=== PATIENT | female | born 1970 | race Caucasian/White ===

== ENCOUNTER 2016-11-16 01:53 | Inpatient (IN) | payer OTHER ==
[~2016-11-16] VITALS: Ht 172.7 cm; Wt 130.2 kg
[2016-11-16] VITALS (19 sets, daily range): BP systolic 104–191; BP diastolic 65–111; PULSE 87–112; RESP 13–21; O2SAT 94–100
[~2016-11-16 01:53] MED LIST: FLAXSEED PO; HYDR25TA4 PO; IRON PO; LACT1CAP67 PO; LISI-571 PO; [UNRECOGNIZED DRUG - OTHER]; [UNRECOGNIZED DRUG - OTHER] PO
[2016-11-16] MEDS ORDERED: 0.9% Sodium Chloride 1,000 ML IV SCH ×2 (02:05→07:40)
--- NOTE | 2016-11-16 02:05 | ED.REPORT ---
HPI-Abd Pain F 40 and Over Date of Service Nov 16, 2016 ED Provider: Ciaran Melton DO Patient is a 45 year old female with a history of hypertension and colon cancer who presents to the ED complaining of right lower quadrant abdominal pain onset 1700 this evening. The patient states that she has a hernia that she is normally able to get back in when she lays down but was unable to do that tonight. Associated symptoms include vomiting and diarrhea. She reports that she was constipated before today. Patient states that her abdomen is too painful to even touch. Nursing Notes Stated Complaint: VOMITING Chief Complaint: Female Abdominal Pain Nursing Notes Reviewed: Yes Allergies: Coded Allergies: iodine (Verified Allergy, Unknown, TOPICAL-RASH, 03/04/14) Scheduled ([flaxseed/fishoil,B]) 1 CAP PO DAILY ([Womens Mvi]) 1 TAB DAILY ([Iron]) PO DAILY Hydrochlorothiazide (Hydrochlorothiazide) 25 Mg Tablet 25 MG PO DAILY Lactobacillus Combination No.4 (Probiotic) 1 Each Capsule 1 EACH PO DAILY Lisinopril (Lisinopril) 5 Mg Tablet 10 MG PO DAILY General Time Seen by MD: 02:04 Chief Complaint Abdominal pain Hx Obtained From: Patient Arrived By: Walk-in Sudden in Onset?: Yes Onset Occurred: 5 - 8 hours ago Symptom Duration: Since onset Location: : RLQ Quality: Painful Radiation: : Does not radiate Severity: Current: Moderate Associated with: Reports: Diarrhea, Vomiting Recent Healthcare: No recent hospitalization, Recent doctor visit Past Medical History Past Medical History colon cancer DVT Reports: Hypertension Past Surgical History right colectomy Reports: Smoking History Never Smoker Social History Other Social History: Good social support Ambulatory Status Independent Review of Systems Constitutional: Denies: Chills, Fever Respiratory: Denies: Non-productive cough, Shortness of breath, Wheezing GI: Reports: Abdominal pain, Constipation, Diarrhea, Nausea, Vomiting Complete sys rev & neg: except as marked. Skin: Denies Rash Physical Exam Vital Signs Vital Signs (First) Date Time Temp Pulse Resp B/P Pulse Ox O2 Delivery O2 Flow Rate FiO2 11/16/16 01:55 36.4 99 16 184/111 96 Room Air Initial VS: Reviewed General/Constitutional: Awake, Alert Appearance / Presentation: Positive: Obese moderate distress due to pain Respiratory / Chest: Atraumatic, Breath sounds NL, Breath sounds = bilat, No respiratory distress Cardiovascular: Heart rate NL, Regular rhythm, Heart sounds NL Abdomen: Atraumatic, Soft quite tender in the right lower quadrant mass in the lower right quadrant consistent with a ventral wall hernia Back: Atraumatic, Full range of motion Head / Eyes: Atraumatic, Normocephalic, PERRL, EOMI Skin: Atraumatic, Color NL, No rash diaphoretic Neurologic: Oriented X3, Speech NL, No motor deficits, No sensory deficits Upper Extremity / MS: Atraumatic, Full range of motion Psychiatric: Affect NL, Mood NL Interpretation & Diagnostics Lab Results Interpretation Test 11/16/16 02:40 Re-Eval/Medical Decision Med Decision/Clinical Course Patient's right lower quadrant is quite tender with a mass consistent with a ventral wall hernia. Her symptoms have been constant since 1700 this evening. Plan for IV resuscitation, pain medication and consider hernia reduction after adequate analgesia Mrs. Roger prefers to have a CT scan prior to attempts at reduction of the hernia. She states that her hernias never quite like this before. This is a reasonable option. I place an ultrasound-guided peripheral IV in the left proximal arm. One attempt. No complications. Under direct visualization I watched saline infused into the vein. We are going to medicate her with IV Dilaudid. Labs are been ordered. CT will be ordered. My shift is ending. Case signed out to Dr. Abdullahi You. Anticipate attempt at hernia reduction or surgical consultation. Counseled Regarding: Diagnosis, Lab results, Need for follow-up, When/why to return to ED Discharge & Departure Shift Change Sign-Out Patient Care Transferred: Yes (Dr. Abdullahi You) Discussed Complaint(s): Yes Laboratory Evaluation: Ordered, not yet done Imaging Studies: Ordered, not yet done Response to Therapy: Worsened Primary Impression: Incarcerated ventral hernia Additional Impressions: Abdominal pain Abdominal location: right lower quadrant Qualified Code: R10.31 - Right lower quadrant pain Nausea vomiting and diarrhea Discharge Condition All VS Reviewed: Yes Condition: Stable Patient Instructions: Ventral Hernia (ED) Referrals: Ronaldo Tamayo MD (PCP) Scribe Attestation Portions of this note were transcribed by Cierra Hung. I, Dr. Melton personally performed the history, physical exam and medical decision-making; I reviewed and confirmed the accuracy of the information in the transcribed note. Signed by: Omar Ornelas, 11/16/16 and [id number] copies to: Ronaldo Tamayo MD, Todd P DO Nov 16, 2016 02:05 Tracy Hung Nov 16, 2016 02:08
[2016-11-16] MEDS ORDERED: HYDROmorphone 1 mg/mL Inj IM ONE (02:30)
[2016-11-16] MEDS: HYDROmorphone 0.5 mg/0.5 mL iSecure Syringe IVPUSH PRN ×4 (02:42→11:30)
[2016-11-16] MEDS: Ondansetron 2 mg/mL 2 mL Inj IVPUSH PRN ×4 (02:42→11:23)
[2016-11-16 02:51] LABS: BASOPHILS % (AUTO) 0.3 % (0-3); EOSINOPHILS % (AUTO) 1.3 % (0-5); MONOCYTES % (AUTO) 4.5 % (4-12); Mean Corpuscular Hemoglobin 27.6 pg (27.0-35.0); Mean Corpuscular Volume 85.4 fL (81-100); NEUTROPHILS % (AUTO) 78.7 % (40-74); Platelet Count 379 bil/L (150-400)
[2016-11-16 03:22] LABS: Lipase 27 U/L (13-60)
[2016-11-16] MEDS ORDERED: Ketamine 10 mg/mL 20 mL Inj IV ONE (05:10)
[2016-11-16 05:31] LABS: APPEARANCE,URINE CLEAR (CLEAR,HAZY); COLOR,URINE STRAW (YELLOW); OCCULT BLOOD,URINE NEGATIVE (NEGATIVE); UROBILINOGEN,URINE NORMAL (NORMAL)
[2016-11-16] MEDS ORDERED: ProchlorPERazine 5 mg/mL 2 mL Inj IVPUSH ONE (05:50)
[2016-11-16] MEDS ORDERED: 0.9% Sodium Chloride 1,000 ML IV ONE (07:40)
[2016-11-16] MEDS: Sodium Chloride LOK Flush 10 mL Syringe IVFLUSH SCH ×5 (07:44→23:17)
--- NOTE | 2016-11-16 08:24 | DRSVH ---
PROCEDURE: CT ABDOMEN AND PELVIS WITH CONTRAST ([id number]) INDICATIONS: severe RLQ pain, ventral wall hernia TECHNIQUE: After the administration of intravenous contrast, 5 mm thick sections acquired from the diaphragm to the symphysis. 5 mm coronal and sagittal reformats were acquired. For radiation dose reduction, the following was used: automated exposure control, adjustment of mA and/or kV according to patient siz e. COMPARISON: None. FINDINGS: Image quality: Excellent. ABDOMEN: Lung bases: Lung bases are clear. Heart size is normal. Solid organs: Liver and spleen are normal in size and enhancement. Gallbladder is within normal hickey its. Biliary system is non dilated. Pancreas enhances normally. No adrenal nodules. Kidneys demon strate normal size and enhancement, without hydronephrosis. Peritoneum and bowel: Bowel loops demonstrate normal wall thickness and caliber. No free fluid or a ir. The right colon has been resected with the patient and and small bowel transverse colon anastomos is on series to image 45 and 46. Nodes and vessels: No retroperitoneal or mesenteric adenopathy by size criteria. Aorta and inferior vena cava are normal in size. Miscellaneous: There is a large hernia involving bowel and mesentery a right spigelian in location ba sed on series 2 image 61. The right rectus abdominis muscle appears to be atrophic. No changes to ind icate ischemia are seen. Several of the bowel loops appear slightly prominent with fluid and air flui d levels within this hernia suggesting mild partial small bowel obstruction may be present within the hernia. No free air or ascites is present. PELVIS: Genitourinary: Bladder wall thickness is normal. Uterus is grossly normal. There is a 3 cm cystic s tructure in the left ovary. Miscellaneous: No inguinal hernias or adenopathy. Bones: No suspicious bony lesions. No vertebral body compression fractures. IMPRESSION: 1. Very large right parasagittal probably spigelian type hernia containing mesentery and small bowel in a patient with previous right colectomy. Several of the bowel loops within the hernia are slightly prominent compared to others suggesting mild partial obstruction may be present within the hernia sa c. 2. There is a 3 cm cystic structure in the left ovary. Dictated by: Jacky Bailey M.D. on 11/16/2016 at 8:15 this report corresponds to the findings of t charley preliminary NSR report. Approved by: Jacky Bailey M.D. on 11/16/2016 at 8:22
[2016-11-16] MEDS ORDERED: Acetaminophen IV 1,000 MG in IV Premix 1 EACH IV PRN (08:35)
[2016-11-16] MEDS ORDERED: Ondansetron 2 mg/mL 2 mL Inj IVPUSH PRN ×3 (08:35→15:05)
[2016-11-16 09:09] LABS: BASOPHILS % (AUTO) 0.1 % (0-3); EOSINOPHILS % (AUTO) 0 % (0-5); MONOCYTES % (AUTO) 2.8 % (4-12); Mean Corpuscular Hemoglobin 27.3 pg (27.0-35.0); Mean Corpuscular Volume 85.1 fL (81-100); Platelet Count 317 bil/L (150-400)
[2016-11-16] MEDS ORDERED: FOLI1TAB50 PO (09:27)
[2016-11-16] MEDS ORDERED: FLUO20CA25 PO (09:27)
[2016-11-16] MEDS ORDERED: OMEG-140 PO (09:29)
[2016-11-16] MEDS ORDERED: FERR325C PO (09:30)
[2016-11-16] MEDS ORDERED: Rocuronium 10 mg/mL 5 mL Inj ONE (10:01)
[2016-11-16] MEDS ORDERED: Neostigmine 1 mg/mL 10 mL Inj ONE (10:01)
[2016-11-16] MEDS ORDERED: Succinylcholine Chloride 20 mg/mL 5 mL Inj ONE (10:01)
[2016-11-16] MEDS ORDERED: fentaNYL-PF 50 mCg/mL 2 mL Inj ONE (10:01)
[2016-11-16] MEDS ORDERED: Ondansetron 2 mg/mL 2 mL Inj ONE (10:01)
[2016-11-16] MEDS ORDERED: Glycopyrrolate 0.2 MG/ML 1mL Inj ONE (10:01)
[2016-11-16] MEDS ORDERED: Phenylephrine/NS 100 mCg/mL 10 mL Syringe IVPUSH ONE (10:01)
[2016-11-16] MEDS ORDERED: Propofol 10,000 mCg/mL 20 mL Inj ONE (10:01)
--- NOTE | 2016-11-16 11:43 | NUR ---
Admit from ER to 1027 pt. brought from ER to 1027 at 0930 this am. Pt. remains hypertensive; see vitals; one time dose of lisinopril 10 mg po given in ED; paged and notified of vs results; no new orders received, surgeon stated will treat pt. in OR and refer to hospitalist post surgery. Receiving prn dilaudid 0.5mg IV for pain; tolerable at this time; denies nausea at this time.
--- NOTE | 2016-11-16 12:20 | NUR ---
Taken to OR at 1220 pt. taken to OR at 1220 this am. at bedside.
--- NOTE | 2016-11-16 12:33 | PCM.HPANE ---
Patient Data Surgeon Admitting Provider:Jessica Bejarano MD Attending Provider:Jessica Bejarano MD Primary Care Physician:Ronaldo Tamayo MD Other Provider:Sharon Orona Anesthesia Reason for Visit Incarcerated Ventral Hernia, Sbo Ht/WT & BMI Height (Feet): 5 Height (Inches): 8.00 Weight (Kilograms): 130.200 Body Mass Index 43.50 Allergies Coded Allergies: iodine (Verified Allergy, Unknown, TOPICAL-RASH, 03/04/14) Past Anesthesia History Anesthesia History: Denies:: Abnormal Airway, Anesthesia Reactions, Difficult Intubation, Fam Anesthesia Reaction, Fam Malignant Hypertherm, Malignant Hyperthermia Diabetes History Hx Diabetes?: No MRSA MRSA: No Medications Home Meds Incl Beta Margie: No Reported Medications Ferrous Sulfate (Iron)325 Mg Capsule.er325 Mg PO 11/16/16 [place]-3/Dha/Epa/Fish Oil (Fish Oil [place]-3 EC 1,200 mg)360 Mg-1,200 Mg Capsule.dr1 Each PO 11/16/16 Mv,Ca,Min/Iron Fum/FA/Vit K (Multi For Her Tablet)1 Each Tablet1 Each PO DAILY 11/16/16 Fluoxetine 20 Mg Vpihgxh61 Mg PO DAILY #30 11/16/16 Lisinopril 5 Mg Agavww09 Mg PO DAILY #30 TABLET Ref 0 07/04/15 Hydrochlorothiazide 25 Mg Mkoudf15 Mg PO DAILY 30 Days Ref 0 07/04/15 Lactobacillus Combination No.4 (Probiotic)1 Each Capsule1 Each PO DAILY 03/28/14 Discontinued Reported Medications [Iron] No Conflict Check Po Daily 03/28/14 [Womens Mvi] No Conflict Check1 Tab DAILY 04/29/13 [flaxseed/fishoil,B] No Conflict Check1 Cap PO DAILY 10/28/12 History History of ENT Problems?: No HEENT History: Denies:: Abnormal Airway Difficult Intubation Dysphagia Hearing Problem Denture Type: None Teeth Condition: Within Normal Limits Hx of Heart Problems?: Yes Cardiovascular History: Positive for:: Hypertension Thrombophlebitis (RT IJ DVT R/T PICC LINE) Denies:: AICD Atrial Fibrillation Chest Pain Pacemaker Valvular Heart Disease Other History/Comments Cardiac ROS negative Hx of Respiratory Problem?: No Respiratory History: Denies:: Asthma COPD Chest Surgery Cough Dyspnea Emphysema Hemoptysis Oxygen Administration Pneumonia Pulmonary Embolism Tuberculosis Use of C-PAP Machine Use of Inhalers / NEBS Hx Neurologic Problems?: No Neurological History: Denies:: Alzheimer's Disease CVA Dementia Dizziness Headaches Multiple Sclerosis Parkinson's Disease Peripheral Neuropathy Seizures TIA Hx of GI Problems?: Yes Other GI Pertinent History: Colon cancer 2011, bursted appendix Hx of Problems?: No Female Hx: Denies:: Currently Skin History: Positive for:: History Skin Disorders? (NEARLY CLOSED ABD INCISION) Denies:: Pressure Ulcers Hx Musculoskeletal Problems?: No Musculoskeletal History: Denies:: Joint Replacement Hx of Psycho/Social Problems?: No Psycho Social History: Positive for:: Anxiety (SITUATIONAL) Denies:: Hx Depression Hx Surgeries?: Yes (rt colectomy x2, ,) Hx Any Other Health Problems?: Yes Other History: Positive for:: Cancer (CECAL NEOPLASM) Denies:: Endocrine Disease Hospitalization Thyroid Disease History Blood Transfusions: Positive for:: Accept Blood Products? Denies:: Blood Transfuse Reaction Blood Transfusions Hx Diabetes: No Hx Alcohol Use: NoHx Substance Use: No Smoking Status: Never Smoker Have You Smoked inLast 12 mo: No Stop/Bang Treated for Sleep Apnea?: No Do You Have a CPAP Machine?: No S-Snoring: Do You Snore Loudly: No T-Tired: feel tired, fatigued: No O-Obsered: Observed not breath: No P-Blood Pressure: treated: Yes B- Body Mass Index > 35 kg/m2: Yes A- Age over 50: No N- Neck Large Circumference: No G- Gender Male: No BHAVANI Total Score: 3 Risk Assessment Category Category 1A: Patient has history of documented sleep apnea, and HAS NOT received any narcotic, sedative or anesthesia administration during this stay. Category 1B: Patient has history of documented sleep apnea, and HAS received any narcotic , sedative or anesthesia administration during this stay Category 2: Patient has SUSPECTED Obstructive Sleep Apnea, and HAS received any narcotic , sedative or anesthesia administration during this stay. Category 3: Patient has SUSPECTED Obstructive Sleep Apnea and HAS NOT received narcotic, sedative or anesthesia administration during this stay. Category 4: Outpatient in Procedural Areas with known sleep apnea or who screen positive for High Risk via the STOP/BANG questionnaire. Exam Exam Vital Signs Vital Signs Date Time Temp Pulse Resp B/P Pulse Ox O2 Delivery O2 Flow Rate FiO2 11/16/16 09:47 36.6 89 20 186/99 97 Room Air 11/16/16 08:59 108 190/98 11/16/16 08:00 101 191/100 11/16/16 06:10 98 21 181/100 98 Room Air General Appearance: Alert, Oriented X3, Cooperative HEENT/AIRWAY: MP 2 Lungs: Clear to Auscultation, Normal Air Movement Heart: Exam Unremarkable, Regular Rate/Rhythm, No Murmurs/Rubs/Gallops Meds/Labs/Diagnostics Admission Meds Current Medications Sodium Chloride 10 ml 10 ml KWABENA IVFLUSH Last administered on 11/16/16 07:44; Start 11/16/16 at 08:30 Sodium Chloride (Normal Saline) 1,000 ml @ 0 mls/hr Q0M IV Last administered on 11/16/16 02:59; Start 11/16/16 at 02:05 Hydromorphone HCl (Dilaudid Inj) 1 mg ONCE ONCE IM Last administered on 02:32; Start 11/16/16 at 02:30; Stop 11/16/16 at 02:31; Status DC Ketamine HCl (Ketalar Inj) 40 mg ONCE ONCE IV Last administered on 11/16/16 05:30; Start 11/16/16 at 05:10; Stop 11/16/16 at 05:11; Status DC Prochlorperazine 10 mg 10 mg ONCE ONCE IVPUSH Last administered on 11/16/16 05:55; Start 11/16/16 at 05:50; Stop 11/16/16 at 05:51; Status DC Sodium Chloride 1,000 ml @ 0 mls/hr Q0M ONCE IV Last administered on 07:42; Start 11/16/16 at 07:40; Stop 11/16/16 at 07:41; Status DC Sodium Chloride (Normal Saline) 1,000 ml @ 100 mls/hr Q10H IV Last administered on 11/16/16 09:26; Start 11/16/16 at 07:40 Lisinopril (Zestril) 10 mg ONCE ONCE PO Last administered on 11/16/16 07:48; Start 11/16/16 at 07:40; Stop 11/16/16 at 07:41; Status DC Labs Test 11/16/16 02:40 11/16/16 05:17 11/16/16 09:05 Total Bilirubin 0.6mg/dL (0.0-1.2) Aspartate Amino Transf (AST/SGOT) 23U/L (0-50) Alanine Aminotransferase (ALT/SGPT) 18U/L (0-32) Alkaline Phosphatase 85U/L (25-150) Total Protein 8.6g/dL (6.4-8.4) Albumin 4.2g/dL (3.4-5.0) Lipase 27U/L (13-60) Human Chorionic Gonadotropin, Qual Negative (Negative) Hold Nicholas Top Tube Received (Received) Urine Color Straw (YELLOW) Urine Appearance Clear (CLEAR,HAZY) Urine pH 8.0 (5.0-8.0) Urine Specific [place] 1.037 (1.003-1.035) Urine Protein Negativemg/dL (NEG,TRACE) Urine Glucose (UA) Negativemg/dL (NEGATIVE) Urine Ketones 15mg/dL (NEGATIVE) Urine Occult Blood Negative (NEGATIVE) Urine Nitrite Negative (NEGATIVE) Urine Bilirubin Negative (NEGATIVE) Urine Urobilinogen Normalmg/dL (NORMAL) Urine Leukocyte Esterase Negative (NEGATIVE) Urine RBC 0-2/hpf (0-2) Urine WBC 6-10/hpf (0-5) Urine Epithelial Cells Moderate/hpf (NONE-MOD) Urine Crystals None seen (NONE SEEN) Urine Bacteria Few/hpf (NONE-FEW) Urine Hyaline Casts None/lpf (NONE) Urine Granular Casts None seen (NONE SEEN) Urine Waxy Casts None seen (NONE SEEN) Urine Red Blood Cell Casts None seen (NONE SEEN) Urine White Blood Cell Casts None seen (NONE SEEN) Urine Mucus None seen (None Seen) Urine Trichomonas None seen (NONE SEEN) Urine Yeast None (NONE SEEN) Urine Culture Reflexed Indicated White Blood Count 14.1th/mm3 (3.8-10.1) Red Blood Count 4.98mil/mm3 (3.90-5.20) Hemoglobin 13.6g/dL (12.0-15.6) Hematocrit 42.4% (35.0-46.0) Mean Corpuscular Volume 85.1fL (81-100) Mean Corpuscular Hemoglobin 27.3pg (27.0-35.0) Mean Corpuscular Hemoglobin Concent 32.1% (32.0-37.0) Red Cell Distribution Width 14.9% (12.3-15.4) Platelet Count 317bil/L (150-400) Neutrophils (%) (Auto) 92.0% (40-74) Lymphocytes (%) (Auto) 4.9% (14-46) Monocytes (%) (Auto) 2.8% (4-12) Eosinophils (%) (Auto) 0% (0-5) Basophils (%) (Auto) 0.1% (0-3) Sodium Level 137mEq/L (134-144) Potassium Level 4.5mEq/L (3.5-5.2) Chloride Level 101mEq/L (97-108) Carbon Dioxide Level 20mmol/L (18-29) Blood Urea Nitrogen 10mg/dL (6-24) Creatinine 0.61mg/dL (0.57-1.00) Estimat Glomerular Filtration Rate 152mL/min (>59) Glucose Level 167mg/dL (60-99) Calcium Level 8.5mg/dL (8.5-10.1) Plan Impression Patient chart reviewed, patient interviewed and anesthestic plan with risks, benefits, and alternatives discussed, and informed consent obtained. ASA Physical Status: ASA3 Severe Disease Anesthetic Plan: GA, Epidural Bene/Risks/Altern/Consents: Yes HP Complete Prior to Induction: Yes Other Epidural for post operative pain Pio Rao MD Nov 16, 2016 12:33
[2016-11-16] MEDS ORDERED: Lactated Ringer's 1,000 ML IV ONE ×4 (12:46→15:49)
--- NOTE | 2016-11-16 13:00 | HP ---
[address] [address] HISTORY AND PHYSICAL PATIENT: CARISA BROWN : 1970 MR#: [id number] ADMIT: 11/16/2016 JOB ID: [id number] DATE: 11/16/2016 CHIEF COMPLAINT/IDENTIFICATION: A 45-year-old female with symptomatic incisional hernia, possible incarceration or strangulation. HISTORY OF PRESENT ILLNESS: The patient notes that she has had this incisional hernia for quite some time, feels that she is usually able to reduce it but that it is irreducible and that she has been vomiting with focal pain over the hernia since yesterday. She came into the emergency department in the middle of the night, received some intravenous ketamine with the attempt to reduce the hernia after a CT scan has demonstrated a hernia. There had been some tentative plans to admit her for emergency surgery, by Dr. Bejarano and I am asked to see her this morning. The patient tells me that she has had this hernia for quite some time, always has felt that she could reduce it by lying down on her back. The hernia has become more symptomatic with discomfort and she sought consultation with Dr. Alvarenga who recommended that she lose weight prior to hernia repair. She has not been terribly successful at this but again, pain became worse than usual yesterday, had associated nausea and vomiting and tenderness over the right lower quadrant and she has presented to the emergency department. PAST MEDICAL HISTORY: 1. Hypertension. 2. History of right colectomy over five years ago for colon cancer with a subsequent reexploration for intestinal perforation two days postop. She did receive postoperative chemotherapy, and at this point, has no evidence of disease and more than five years out from her initial surgery. She has had a colonoscopy within the past 12 months that was negative by Dr. Zamudio. MEDICATIONS: Lisinopril. ALLERGIES: IODINE. SOCIAL HISTORY: , negative tobacco. Negative daily alcohol. Does not work outside the home. FAMILY HISTORY: Noncontributory. REVIEW OF SYSTEMS: Cardiac negative. Chest pain negative. Paroxysmal nocturnal dyspnea, does get short of breath with exertion but this is related to her weight she feels. Pulmonary: Negative COPD, negative asthma, positive for seasonal allergies, fatigability associated with her weight. Other review of systems generally negative except for joint pain and discomfort with stairs. PHYSICAL EXAMINATION: In the emergency department, pulse was 99. Blood pressure was 184/111. Temperature was normal at 36.4. After further treatment, her blood pressure went down to 186/99, her pulse was 89. Her sclerae are clear. Neck is supple. Lungs are clear. Heart sounds are distant but regular. She has central obesity with a BMI of 43.6. She has a well-healed surgical incision consistent with a right transverse incision. She is mildly tender over the right lower quadrant in the area of incarcerated small intestine. Extremities are without edema. Neurologically, she is intact though she is still a bit loopy after the ketamine. LABORATORIES: Initial comprehensive metabolic panel is normal except for a glucose of 204 and repeat blood sugar is 167 with a pending hemoglobin A1c. Initial white count was 15, down to 14 with a repeat. Initial hematocrit is 44 but after 2 L of fluid it is down to 42. IMAGING: She had abdominal CT that I have reviewed, both the films and the report, as well as comparing the film to a CT scan from approximately two years ago. This demonstrates a very large parasagittal hernia containing mesenteric small bowel with some dilated loops of bowel and edema in the small bowel mesentery. The hernia is essentially unchanged except for the changes in the small bowel mesentery from several years ago. IMPRESSION AND PLAN: A 45-year-old female with an extremely symptomatic incarcerated incisional hernia. I would be surprised if she is ever able to truly reduce this given its size and the appearance on the CT from a few years ago. However, the fact that it is swollen and tender and her white count is elevated pushes me towards operative intervention at this point. I have explained that there is a higher risk of recurrence with emergency incisional hernia repair than with elective repair. We will try to optimize her blood sugar and her blood pressure, and plan to go to the OR today for an emergency repair of an incarcerated, possibly strangulated, incisional hernia with mesh. I have explained the risks, benefits and possible complications to the patient and her , and they agree to proceed.
[2016-11-16] MEDS ORDERED: Lactated Ringer's 1,000 ML IV SCH (14:59)
[2016-11-16] MEDS ORDERED: Lactated Ringer's 500 ML IV PRN (14:59)
[2016-11-16] MEDS ORDERED: Dexamethasone 4 mg/mL Inj IVPUSH PRN (15:00)
[2016-11-16] MEDS ORDERED: MetoCLOpramide 5 mg/mL 2 mL Inj IVPUSH PRN (15:00)
[2016-11-16] MEDS ORDERED: HYDROmorphone 1 mg/mL Inj IVPUSH PRN (15:00)
[2016-11-16] MEDS ORDERED: fentaNYL-PF 50 mCg/mL 2 mL Inj IVPUSH PRN (15:00)
[2016-11-16] MEDS ORDERED: Phenylephrine 10,000 mCg/mL Inj IVPUSH PRN (15:00)
[2016-11-16] MEDS ORDERED: EPHEDrine Sulfate 50 mg/mL Inj IVPUSH PRN (15:00)
[2016-11-16] MEDS ORDERED: Atropine 1 mg/mL Inj IVPUSH PRN (15:05)
[2016-11-16] MEDS ORDERED: EPHEDrine Sulfate 50 mg/mL Inj IV PRN (15:05)
[2016-11-16] MEDS ORDERED: diphenhydrAMINE 25 mg Capsule PO PRN (16:50)
--- NOTE | 2016-11-16 17:28 | PCM.ANEP1 ---
Post Anesthesia PACU Phase 1 Assessment Vital Signs Vital Signs Date Time Temp Pulse Resp B/P Pulse Ox O2 Delivery O2 Flow Rate FiO2 11/16/16 16:55 17 100 11/16/16 16:55 101 17 170/88 100 Simple Mask 10 11/16/16 16:50 101 13 167/99 100 Simple Mask 10 11/16/16 16:45 102 16 166/94 100 Simple Mask 10 11/16/16 16:40 37.3 105 14 158/99 100 Simple Mask 10 11/16/16 09:47 36.6 89 20 186/99 97 Room Air Anesthetic Administered: GA Level of Alertness: Sleepy, easy to arouse HALL's with Equal Strength: Yes Pain: No Pain Scale Score: 0 Nausea or Vomiting: No CV Function & Hydration Stable: Yes Airway Device: Oxygen Delivery: Simple Mask Lungs: Clear to Auscultation, Normal Air Movement PACU Phase 2 Assessment Complications: No Follow up Care: N/A Patient Instructions Provided: N/A Comments Somnulent and comfortable on arrival to PACU Pio Rao MD Nov 16, 2016 17:28
[2016-11-16] MEDS ORDERED: fentaNYL 2 mCg/mL-Bupiv 0.125% 100 ML in IV Premix 1 EACH EPIDURAL SCH (17:35)
[2016-11-16] MEDS ORDERED: Nitroglycerin 2% 1 Gm Ointment TOPICAL PRN (17:50)
[2016-11-16] MEDS: Lactated Ringer's 1,000 ML IV SCH (18:13)
--- NOTE | 2016-11-16 18:55 | OP ---
[address] [address] OPERATIVE REPORT PATIENT: CARISA BROWN : 1970 MR#: [id number] ADMIT: 11/16/2016 JOB ID: [id number] DATE OF SURGERY: 11/16/2016 PREOPERATIVE DIAGNOSIS(ES): Incarcerated incisional hernia with possible strangulation. POSTOPERATIVE DIAGNOSIS(ES): Incarcerated incisional hernia. OPERATION: Open repair of incarcerated incisional hernia with mesh. Advanced degree of difficulty, modifier-22. SURGEON: Pio Mccormick MD. WET SILK HANGER: Elvia Koo RN FA. INDICATIONS: A 45-year-old woman with an acutely symptomatic and tender right abdominal incisional hernia. She presents for urgent repair. FINDINGS: 1. healthcare administrative assistant was medically necessary and medically essential for safe and timely completion of the operation including retraction, exposure, and positioning. 2. The patient had a very chronic incisional hernia with a fair amount of small bowel and colon with multiple interloop adhesions. The bowel was somewhat edematous though there was no compromised bowel. 3. Operative time was extended to 3 hours, well more than twice the standard time for this operation. The patient required repair of multiple incisional hernias with a single piece of 8 x 10 Ventralight mesh. PROCEDURE: Patient was brought to the operating room. Epidural catheter was placed. General anesthetic was administered. The abdomen was prepped and draped in sterile fashion. SCOAP protocol was followed. Surgical time-out was performed. She received perioperative 3 g of IV Ancef. blood sugar had been mildly elevated in the emergency department and was checked to be certain that it was below 150 during the case. Initial blood sugar was reported below 120. I went through her old transverse incision. We had dissected down. We encountered some hernia sac. I ended up extending the incision all the way to her old incision medially and laterally. We encountered multiple hernia sacs. I continued my dissection down. It was difficult and tedious and we simply tried to stay in an avascular plane and eventually found a hernia sac that we entered and suctioned out serous fluid. We opened up the hernia sac a little bit more. This helped us define the anatomy, but it took us a good hour and a half to take down all the adhesions external to the abdominal fascia and then to identify the fascial defects. What we found was that she had a chronic incarcerated hernia with multiple scars to the inside of the hernia sac. There were areas of tight restrictive bands on several different areas of the small bowel though it was dilated on both sides, so these were nonobstructive, but they were somewhat occlusive bands. I can certainly imagine that they were some of the cause of her pain. We took most of these bands down. There was no enterotomy. The colon was filled with stool. We eventually found that she had two large hernia cavities, both to the right of her abdominal wall and the larger one going down towards her feet, a second one going up towards her head. We mobilized tissue out of this and we eventually were able to identify the fascial edge laterally and superiorly. We now continued our dissection medially. She had multiple smaller incisional hernias as we went medially on her incision and we ended up combining all these by cutting the small fascial bridges in between. This freed up her bowel more. We were eventually able to identify the fascial edge circumferentially that extended well to and beyond the midline. We mobilized the intestine from inside so that we could clear off the fascia and preperitoneal space. I trimmed much of the hernia sac, but still maintained a fair amount of it so that we could approximate it over the intestines prior to closure with mesh. At roughly the 1-1/2 hour to 1 hour 45 minute lang we had taken down all the adhesions in the sac, freed up all the intestine and took down all significant interloop adhesions that seemed unnecessarily restrictive or for potential internal hernias. With complete relaxation we were able to return the viscera to the abdomen, and at this point, I decided that we would need to close this with a 8 x 10 inch piece of Ventralight mesh. There was enough greater omentum and hernia sac to leave between the small intestine and the bio-absorbable side of the mesh. We brought the mesh up and secured it circumferentially with interrupted 0 Prolenes, some single and some [id number] sutures. These were placed circumferentially around the mesh with leaving the mesh inside the fascia and overlapping the wound edge for approximately 1-2 cm medially on the wound but then transitioning to [id number] approximation of the mesh and the fascia of the lateral third of the wound. Care was taken to place these sutures carefully and safely and we went medial to lateral and tied as we went for two-thirds of the closure and for the final third left our sutures long and placed some interrupted and then tied them after they had all been placed. At this point, we checked our hernia repair. Sutures were intact. They were placed appropriately. We placed a few other sutures in between two areas and then proceeded to irrigate out the wound. The vast majority of the hernia sac had been excised and I took a pair of Chu-Shen drains and brought them out into the old space that had been left by the hernia sac. Both drains were lateral to the mesh. We now closed the subcutaneous tissues in two layers with running 2-0 Vicryl to both take tension off the skin closure but also to protect the mesh in case of superficial wound infection or dehiscence. We then proceeded to close the skin with yazmin. Dry dressing was applied, and the patient was transferred to recovery room after extubation. She tolerated the procedure well, though operative time was extended at 3 hours. Estimated blood loss was 25 cc. There were no complications.
[2016-11-17] VITALS (10 sets, daily range): BP systolic 75–129; BP diastolic 46–79; PULSE 89–114; RESP 16–20; O2SAT 92–97
--- NOTE | 2016-11-17 00:09 | NUR ---
PAIN; denied pain first part of shift. Turned and repositioned q 2hrs- importance explained to pt. Coughing and deep breathing with pillow for a splint. Epidural infusing at 12cc/hr and pt has a bolus button. Pt states is comfortable "until I have to move". At approx. midnight pt c/o right side sharp abd pain. Iv tylenol hung. Addendum: 11/17/16 at 0022 by MANJIT UGARTE RN Pt states 12/16 pain.
[2016-11-17] MEDS: fentaNYL-PF 50 mCg/mL 2 mL Inj IVPUSH PRN ×2 (02:04→03:40)
--- NOTE | 2016-11-17 04:01 | NUR ---
PAIN; Sublimaze x2 for breakthru pain with fair to moderate relief. Pt repositioned for comfort q2 hrs and prn. Appeared to sleep off and on in short increments. Encouraged pt to push epidural button.
[2016-11-17] MEDS: fentaNYL 2 mCg/mL-Bupiv 0.125% 100 ML in IV Premix 1 EACH EPIDURAL SCH ×4 (04:18→21:03)
[2016-11-17 06:00] LABS: BASOPHILS % (AUTO) 0.1 % (0-3); EOSINOPHILS % (AUTO) 0.1 % (0-5); MONOCYTES % (AUTO) 10.5 % (4-12); Mean Corpuscular Hemoglobin 27.7 pg (27.0-35.0); Mean Corpuscular Volume 86.8 fL (81-100); Platelet Count 370 bil/L (150-400)
[2016-11-17] MEDS: Lactated Ringer's 1,000 ML IV SCH ×2 (06:02→19:14)
[2016-11-17] MEDS: Sodium Chloride LOK Flush 10 mL Syringe IVFLUSH SCH ×4 (08:30→16:30)
[2016-11-17] MEDS: Heparin 5,000 Unit/mL Inj SUBQ SCH ×2 (09:34→17:36)
[2016-11-17] MEDS ORDERED: CeFAZolin Inj 2 GM in IV Premix 1 EACH IV ONE (12:00)
--- NOTE | 2016-11-17 14:31 | PROG NOTE ---
[address] [address] PROGRESS NOTE PATIENT: CARISA BROWN : 1970 MR#: [id number] ADMIT: 11/16/2016 JOB ID: [id number] DATE: 11/17/2016 NOTE: Postop day one open repair of incarcerated incisional hernia with mesh. She is afebrile. Stable vital signs. Pain control is adequate. Passing gas but no bowel movements. She is not particularly hungry. Her abdomen is soft, nontender. Incision is in good shape without sign of infection. Her Chu-Shen drains are putting out serosanguineous fluid at a reasonable rate. SCDs are on. Labs: White count is 14, hematocrit is 38. Chemistries are normal. Blood glucose is 146. Hemoglobin A1c is still pending. IMPRESSION AND PLAN: Doing well. She did have one episode of transient hypotension that is likely related to her epidural. However, she is having good pain control and I would hate to see us cut back on the epidural at this point, as her hypotension was transient and asymptomatic. I have encouraged her to get up and walk and we will advance her diet slowly. I want to minimize the risk of abdominal distention and vomiting which would put an unnecessary strain on her incisional hernia repair.
--- NOTE | 2016-11-17 16:02 | NUR ---
Social Work- Screening Note Data: EMR reviewed. Pt is a 46 year old female admitted 11/16/16 for incarcerated ventral hernia, SBO per H&P. Surgery is primary service on this patient. Pt is not medically stable for discharge at this time, anticipate 1-2 more days. Pt is POD 1. Pt encouraged to ambulate and advance diet. Pt's payor at [facility]. Pt's PCP is Ronaldo Tamayo MD. Per chart review, pt resides in [place] with her where she is independent at baseline. Pt anticipated to discharge home with spouse to transport via POV. No discharge needs anticipated. SW will continue to follow if discharge needs arise. Assessment: Pt who is independent at baseline. Plan: Pt anticipated to discharge home with spouse to transport via POV. No discharge needs anticipated. SW will continue to follow if discharge needs arise. NOEMI Garcia
--- NOTE | 2016-11-17 17:01 | NUR ---
Post op day #1- Patient denies incisional pain. Epidural at 12mls/hr with prn bolus dosage has been effective for pain. BP- 70/40's earlier today. Patient asymptomatic. MD notified. BP meds held. BP gradually came up. Patient able to get up and stand at bedside for a few minutes. Lying and standing BP done with no changes in reading. Tolerating clear liquids without N&V.
[2016-11-17] MEDS ORDERED: Acetaminophen IV 1,000 MG in IV Premix 1 EACH IV ONE (21:00)
[2016-11-17] MEDS ORDERED: Ondansetron 2 mg/mL 2 mL Inj IVPUSH PRN (22:05)
[2016-11-17] MEDS ORDERED: HYDROmorphone PCA 0.2 mg/mL 30 mL Inj IV PRN (22:05)
[2016-11-17] MEDS ORDERED: MetoCLOpramide 5 mg/mL 2 mL Inj IVPUSH PRN (22:05)
[2016-11-17] MEDS ORDERED: HYDROmorphone PCA 0.2 mg/mL 30 mL Inj IV ONE (22:07)
[2016-11-17] MEDS ORDERED: Alum-Mag Hydrox-Simeth 30 mL Suspension PO PRN (22:15)
[2016-11-17] MEDS: Pantoprazole 4 mg/mL 10 mL Inj IVPUSH SCH (22:32)
--- NOTE | 2016-11-17 23:30 | PROG NOTE ---
[address] [address] PROGRESS NOTE PATIENT: CARISA BROWN : 1970 MR#: [id number] ADMIT: 11/16/2016 JOB ID: [id number] DATE: EPIDURAL MANAGEMENT NOTE: The patient is postop day one from an incisional ventral hernia repair with mesh. She had an epidural placed yesterday and per the patient and her surgeon epidural was controlling her pain well last night and this morning, however, sometime around midday apparently when the patient got up to ambulate she has started experiencing discomfort, particularly in her right lower quadrant, that has persisted until this evening when I had a chance to see the patient. Prior to my visitation, the patient had a Dilaudid PUNCH PRESS OPERATOR added and this has resulted in some improvement, but also had the side effect of increased somnolence. When I saw the patient, she was conversing appropriately, however, she stated that her pain was an 8/10, particularly on the right side. Patient remains n.p.o. She is experiencing heartburn symptoms. PHYSICAL EXAMINATION: Objectively, examination of the epidural site shows that the catheter tip remains intact at 20 cm at the skin. The dressing is dry. There is no erythema or tenderness to palpation at the insertion site. She has an epidural running 0.125% bupivacaine plus 2 mcg per mL fentanyl at a rate of 12 mL an hour with a demand dose of 5 mL three times per hour. She also has a Dilaudid PUNCH PRESS OPERATOR at the standard settings. PHYSICAL EXAMINATION: Her vital signs shows that she is satting 99% with an OxyMask on and her blood pressure has systolics in the mid 90s. This is compared to yesterday when her systolic blood pressures were much higher in the 150s-160s. Testing the patient's dermatome levels to cold reveals that she has diminished sensation more so on the left side of her body than the right, and it seems more in the upper part of her incision rather than the lower. IMPRESSION AND PLAN: A 46-year-old female postop day one from an open ventral hernia repair. The epidural seemed to be functioning very well overnight and this morning, however, for reasons that I am unsure of it does not seem to be working as well now, particularly on the right side where the patient complains of most of her pain. It looks like the epidural catheter was placed approximately 7 cm and at 20 cm at the skin. I will pull the catheter back a few centimeters in order to hopefully improve the bilateral spread of the epidural medication. This was done and the catheter was dressed in sterile manner and taped at approximately 16 cm at the skin. We well switch the patient's epidural medication while she is on a PUNCH PRESS OPERATOR to a bupivacaine only infusion. I have also scheduled the patient for IV Tylenol every 6 hours as needed. We will make these changes and reassess. I do believe the epidural catheter is providing some benefit, it just appears to be one-sided. If pulling back the catheter results in better analgesia, then hopefully we can decrease the patient's PUNCH PRESS OPERATOR or make it a p.r.n. basis. If not, then we will continue adjunct pain medications in the form of Tylenol and IV narcotics.
[2016-11-17] MEDS: BUPIVACAINE MPF 0.5% EPIDURAL SCH (23:34)
[2016-11-17] MEDS: SODIUM CHLORIDE 0.9% EPIDURAL SCH (23:34)
[2016-11-18] VITALS (9 sets, daily range): BP systolic 109–144; BP diastolic 73–90; PULSE 98–106; RESP 14–22; O2SAT 92–97
[2016-11-18] MEDS: Heparin 5,000 Unit/mL Inj SUBQ SCH ×3 (00:47→17:32)
[2016-11-18] MEDS ORDERED: HYDROmorphone 0.5 mg/0.5 mL iSecure Syringe IVPUSH PRN ×2 (01:05→16:10)
[2016-11-18] MEDS: HYDROmorphone 0.5 mg/0.5 mL iSecure Syringe IVPUSH PRN ×10 (02:18→23:47)
--- NOTE | 2016-11-18 04:08 | NUR ---
Pain/ Heartburn/ MD paged/Diet At beginning of shift patient complains of severe right sided abdominal pain, and heart burn. Surgeon in multiple surgeries and unable to address needs right away. Able to contact doctor at [phone] and an order for pantoprazole and Mylanta were written. Pharmacy questions Mylanta order, so order will be verified in the am; will pass this on to day shift nurse. Pantoprazole IV was given, and upon reassessment patient states some relief. A stat EKG was also ordered, MD notified. Anesthesiologist contacted to share that epidural does not seem to be providing any relief. Surgeon notified and has ordered a RESPONDER Dilaudid ..2 with a loading bolus of .3 to be started. Surgeon states NOT to change settings of the epidural or to stop it until the anesthesiologist arrives. Once anesthesiologist arrived, he adjusted placement of epidural as well as changed medication to bupivacaine (5ml, 20 min lockout, 3 doses an hour, continuous 12ml) only. Anesthesiologist states to still provide RESPONDER as well as epidural, and that he will be back to reassess patient after next surgery. Per day shift report RN states that patient is on clear liquid diet. Upon further assessment, no diet has been ordered. Patient has been placed on NPO until diet can be clarified in the morning. Addendum: 11/18/16 at 0411 by LUI HOU RN Upon anesthesiologists reassessment, he has DCd RESPONDER and has ordered for 0.5mg dilaudid IVP [id number]. AFTER SCHOOL COORDINATOR applied, 4L o2 via oxymask worn due to patient mouth breathing. Will continue to monitor, and continue Q1 hour checks.
--- NOTE | 2016-11-18 06:25 | NUR ---
Pain/ Distention Due to increased unmanaged pain and pt complaints of abdominal distention, on called surgeon was paged. ordered for a KUB xray now. When tech came down, she stated that due to patient being in pain she would not preform xray. Offered to give pain medication, but tech had already left. Charge nurse notified of this, and has shared this with day shift discharge planner. Care continues.
[2016-11-18] MEDS: Acetaminophen IV 1,000 MG in IV Premix 1 EACH IV PRN ×3 (07:24→19:59)
[2016-11-18] MEDS: Lactated Ringer's 1,000 ML IV SCH (07:24)
[2016-11-18] MEDS: Pantoprazole 4 mg/mL 10 mL Inj IVPUSH SCH ×2 (07:57→21:04)
[2016-11-18] MEDS: Sodium Chloride LOK Flush 10 mL Syringe IVFLUSH SCH ×6 (08:30→16:30)
--- NOTE | 2016-11-18 08:53 | DRSVH ---
PROCEDURE: X-RAY KUB ([id number]) INDICATIONS: COMPLAINTS OF DISTENSION TECHNIQUE: One view of the abdomen acquired. COMPARISON: [facility], CT, CT ABD PELVIS W CON, 11/16/2016, 4:45. FINDINGS: Surgical changes and devices: Skin yazmin and surgical drains are present. Bowel: There are mildly prominent left-sided small bowel loops measuring up to 5.0 cm in diameter. Th is appears progressed since the ditching machine operating engineer image from prior CT dated 11/16/16. There is also gas in the sto mach Soft tissues: No suspicious abdominal calcifications. Visualized solid organ contours appear normal in size. Bones: No suspicious bony lesions. Bilateral hip joint degeneration and scattered discogenic change s. IMPRESSION: Increased prominence of predominantly left-sided small bowel loops since 11/16/16, which raises the po ssibility of worsening bowel obstruction, versus postoperative adynamic ileus. If the patient's sympt oms do not improve recommend continued followup with abdominal series radiographs. Postsurgical changes as above Dictated by: Niels Khan M.D. on 11/18/2016 at 8:24 Approved by: Niels Khan M.D. on 11/18/2016 at 8:52
--- NOTE | 2016-11-18 09:57 | PROG NOTE ---
[address] [address] PROGRESS NOTE PATIENT: CARISA BROWN : 1970 MR#: [id number] ADMIT: 11/16/2016 JOB ID: [id number] DATE: 11/17/2016 SUBJECTIVE: The patient is a 45-year-old female, who is status post repair of incarcerated incisional ventral hernia with mesh. She has an epidural in place for postop pain relief. The patient is receiving local only solution 0.125% bupivacaine running at 12 mL/h. She is also receiving IV Tylenol and Dilaudid IV. Some adjustments to the epidural were made yesterday by Dr. Mcfadden. The patient had a mostly unilateral block. The patient continues to have stronger block on the left than the right, but her pain is better this morning than it was the last night. She describes the pain as a 4/10, mostly along the right side of the incision when I saw her this morning. She does complain as the Dilaudid wears off, that the pain increases. The epidural site appears fine. PLAN: I discussed options with the patient and the patient's nurse, and my plan at this time is to keep the epidural running as is without any changes. Supplemental pain medicines, the Tylenol and Dilaudid, will also be needed. Any changes to those, I will leave to the surgeons. The patient had a KUB film taken this morning, the results of which are pending, which may dictate whether or not the patient could be switched to oral medications. ROHIT
--- NOTE | 2016-11-18 11:11 | PCM.PNSURG ---
Subjective Date of Service: Nov 18, 2016 Date of Service: Nov 18, 2016 Visit Information: Reason for Visit Incarcerated Ventral Hernia, Sbo Surgery/Surgery Date Post-Op Day # 2 s/p incarcerated incisional hernia Date of Admission: Nov 16, 2016 at 05:57 Hospital Day # Subjective: Seen today with family at bedside. States she feels somewhat distended although mildly improved from earlier today. No nausea or vomiting noted. Right sided abdominal pain noted though alleviated with current pain regimen. Postop General: No Shortness of Breath, No Chest Pain Gastrointestinal: No N/V, Passing Flatus (unknown) Pain Management: AIR PUMPER without Basal, Epidural, IV Push (tylenol) Objective Vital Sign- Last 8 Hours Date Time Temp Pulse Resp B/P Pulse Ox O2 Delivery O2 Flow Rate FiO2 11/18/16 08:24 36.9 103 22 109/73 94 OxyMask 5.00 11/18/16 08:13 Supplement Oxygen 11/18/16 08:04 14 11/18/16 06:20 36.3 106 18 139/90 92 OxyMask 5.00 Intake and Output- Last 8 Hour 11/18/16 Cumulative From/Thru 07:00 11/16/16 01:55 - 11/18/16 06:58 Intake Total 1095 ml 9298 ml Output Total 875 ml 3030 ml Balance 220 ml 6268 ml Intake Oral 0 ml 640 ml IV Total 1095 ml 8658 ml Output Urine Total 750 ml 2295 ml Drainage Total 125 ml 710 ml Estimated Blood Loss 25 ml # Bowel Movements 0 0 General: Alert, Oriented X3 Neck: Supple Lungs: Clear to Auscultation Heart: Regular Rate/Rhythm Abdomen: Soft, Protuberant, Other (hypoactive) SURGICAL WOUND : Wound General Appearence: Piedad, No Erythema, Wound under dressing Dressing & Drainage Status: Intact, No Purulent Drainage, No Odor Result Diagram: 11/17/1652911/17/16529 Assessment & Plan Impression Postop day #2 s/p open repair of incarcerated incisional hernia with mesh. Afebrile with nominal pain control especially on right side of abdomen. Incisions healing well. Drain output slowing [place] [address] H/H 12 and 38. chemistries normal and cbg stable at 146 Continue epidural/AIR PUMPER while npo advance diet slowly- keep npo; ngt if n/v leave drain follow clinically OOB to chair -- PT Problems: Pain Management: fentanly dilaudid dilaudid aircraft seat upholsterer VTE Prophylaxis: Sub-Q Heparin (Unfractionated) Conrado Kevin PA-C Nov 18, 2016 11:11 will advance her diet slowly. I want to minimize the risk of abdominal distention and vomiting which would put an unnecessary strain on her incisional hernia repair. Problems: Conrado Kevin PA-C Nov 18, 2016 11:11
[2016-11-18] MEDS: BUPIVACAINE MPF 0.5% EPIDURAL SCH (12:39)
[2016-11-18] MEDS: SODIUM CHLORIDE 0.9% EPIDURAL SCH (12:39)
[2016-11-18] MEDS: D5 0.45% NaCl + KCl 20 mEq/L 1,000 ML IV SCH (13:01)
--- NOTE | 2016-11-18 15:48 | NUR ---
Evaluation completed. Please go to "Notes" then click on "Assessments and Notes" (bottom left corner of screen). Then select appropriate discipline tab on top of screen.
--- NOTE | 2016-11-18 17:20 | NUR ---
Pain/AM meds P: Pt with poorly controlled pain over NOC shift despite Epidural and q2hr IV 0.5mg Dilaudid. STAT KUB ordered at 0600 and performed at 0745 to r/o obstruction or bleeding. PO medications withheld d/t continued nausea and potential obstruction; Heparin delayed waiting for results to confirm no active bleeding and 1630 dose will be given a little later to correct 8hr interval; MD aware. No NG tube ordered at this time, encouraging activity to help with bowel gas and Dilaudid dose increased to 0.5-1mg PRN. Pain has been better controlled using IV Tylenol q6hrs with Dilaudid q2hrs. Pt is agreeable to dangling at EOB TID and felt better after working with PT.
[2016-11-19] VITALS (10 sets, daily range): BP systolic 113–131; BP diastolic 69–84; PULSE 90–97; RESP 16–18; O2SAT 92–98
[2016-11-19] MEDS: Sodium Chloride LOK Flush 10 mL Syringe IVFLUSH SCH ×7 (00:30→22:50)
[2016-11-19] MEDS: BUPIVACAINE MPF 0.5% EPIDURAL SCH ×2 (01:55→17:06)
[2016-11-19] MEDS: SODIUM CHLORIDE 0.9% EPIDURAL SCH ×2 (01:55→17:06)
[2016-11-19] MEDS: D5 0.45% NaCl + KCl 20 mEq/L 1,000 ML IV SCH ×2 (02:05→15:07)
[2016-11-19] MEDS: HYDROmorphone 0.5 mg/0.5 mL iSecure Syringe IVPUSH PRN ×9 (02:05→21:32)
[2016-11-19] MEDS: Heparin 5,000 Unit/mL Inj SUBQ SCH ×3 (02:07→17:06)
--- NOTE | 2016-11-19 05:52 | NUR ---
Pain/Activity Pt dangled legs and stood at bedside this shift. Pain remains 5-7/10, managed with IV dilauded 1mg Q2h PRN, Bupivicane epidural, and IV apap given until its DC time at 0300. Pt appears anxious when there is not a pain medication available. Pt on CPOX and 4-5 L O2 with mask. Pt remains on chips and sips, no complaints of nausea this shift. GI tones are quiet and no flautus. Pt is belching and complains of gas pains in upper abdomen. NATALYA #1 drains 55 cc, NATALYA #2 drains 25 this shift. Family member in room throughout shift. Care continues
[2016-11-19 06:42] LABS: BASOPHILS % (AUTO) 0.1 % (0-3); EOSINOPHILS % (AUTO) 1.9 % (0-5); MONOCYTES % (AUTO) 9.3 % (4-12); Mean Corpuscular Hemoglobin 27.8 pg (27.0-35.0); NEUTROPHILS % (AUTO) 74.6 % (40-74); Platelet Count 349 bil/L (150-400)
[2016-11-19] MEDS: Pantoprazole 4 mg/mL 10 mL Inj IVPUSH SCH ×2 (08:11→21:26)
--- NOTE | 2016-11-19 10:19 | PCM.PNSURG ---
Subjective Date of Service: Nov 19, 2016 Date of Service: Nov 19, 2016 Visit Information: Reason for Visit Incarcerated Ventral Hernia, Sbo Surgery/Surgery Date Nov 16, 2016 s/p incarcerated incisional hernia Post-Op Day # 3 Date of Admission: Nov 16, 2016 at 05:57 Hospital Day # 4 Subjective: Venita is feeling good today. She is still having abdominal pain and epidural is in place but seems to help more on her left side and not so much her right. She is feeling heartburn but has not vomited since surgery. She is burping but is not passing flatus. She states her abdominal distension is about the same as yesterday. Current pain regimen is working well and she is dangling feet at edge of bed after she receives Dilaudid. Postop General: No Shortness of Breath, No Chest Pain Gastrointestinal: No N/V Pain Management: Epidural, IV Push Postop Activity: Other (up to edge of bed) Objective Vital Sign- Last 8 Hours Date Time Temp Pulse Resp B/P Pulse Ox O2 Delivery O2 Flow Rate FiO2 11/19/16 08:26 Supplement Oxygen 11/19/16 08:26 17 92 11/19/16 04:55 36.3 97 17 130/81 92 OxyMask 5.00 11/19/16 04:27 18 95 Intake and Output- Last 8 Hour 11/19/16 Cumulative From/Thru 07:00 11/16/16 01:55 - 11/19/16 06:13 Intake Total 0 ml 07103 ml Output Total 980 ml 4785 ml Balance -980 ml 5635 ml Intake Oral 0 ml 640 ml IV Total 9780 ml Output Urine Total 900 ml 3895 ml Drainage Total 80 ml 865 ml Estimated Blood Loss 25 ml # Bowel Movements 0 0 General: Alert, Oriented X3, Cooperative, No Acute Distress Neck: Supple Lungs: Clear to Auscultation Heart: Regular Rate/Rhythm, No Murmurs/Rubs/Gallops Abdomen: Appropriately tender, Distended (mildly) SURGICAL WOUND : Wound Location/Description abdominal horizontal laparotomy incision Wound General Appearence: [place], Intact, Well Approximated, Incision Healing, No Erythema, No Discharge Dressing & Drainage Status: Changed, Dressing Removed Wound Drainage Type: NATALYA Drain #1 (serosanguineous ), NATALYA Drain #2 ( serosanguineous ) Extremities: Distal Pulses Palpable, Warm Neuro: Grossly Neurologically Intact Catheters: Urethral 2 Way Freed Result Diagram: 11/19/16 0600 11/19/16 0600 Lab & Micro Results: WBC decreased to 12.5 today. Sodium and chloride decreased today. Assessment & Plan Impression 46 yo female postop day #2 s/p open repair of incarcerated incisional hernia with mesh. Afebrile with acceptable pain control. Incisions healing well, dressing changed today. Drain output slowing, serosanguineous. Problems: Plan 1. Advance diet to sips of clear liquid. Patient complaining of heartburn, on protonix. 2. DC Freed 3. Encourage incentive spirometer. 4. Pain control with IV Tylenol, IV Dilaudid, currently with epidural fentanyl. 5. Mildly hypochloremic and hyponatremic today, Continue IV fluids at 80 mL/hr, add clear liquids and CMP in the AM. VTE Prophylaxis: Sub-Q Heparin (Unfractionated) Resuscitation Status: CPR: Attempt Resuscitation Attending Statement: Patient was seen and examined with the resident, her pain is well controlled at this time, she is not passing flatus but also not nausea. Will give her a trial of clear liquids and I was very strict in advising her to go very slowly and stop if she developed nausea. I agree with the plan and assessment above. Her wound is healing well with e/i/d. NATALYA's are serosang. PCEA could be discontinued soon - will d/c Freed to help encourage movement as well as to decrease chance of infection. at bedside and plan is reviewed with both patient and him. Questions answered. copies to: Pio Mccormick MD; Sim Guo MD, Erika R DO Nov 19, 2016 09:21 Evelyne Baeza [facility] Nov 19, 2016 15:25
--- NOTE | 2016-11-19 14:30 | NUR ---
NUTRITION ASSESSMENT: ASSESS: 46 YO female admitted for incarcerated ventral hernia, small bowel obstruction, POD #3. Pt is not passing flatus and abd. distention remains about the same as yesterday per notes. Pt has been NPO/CL x 3 days. Surgery advanced diet to clear liquids again today. PMHx: HTN, R colectomy for colon cancer with subsequent reexploration for intestinal perforation on POD #2, s/p chemo. LABS: Reviewed. Na 133, Glu 117. MEDS: Reviewed. GI: No BM reported. CURRENT WT: 130.2 kg. Adj BW: 83.2 kg. DIET: Clear Liquids. No PO intake yet reported. EST. NEEDS: 1188-7323 kcals (25-30 kcals/kg Adj BW), 100-125 g protein (1.2-1.5 g/kg Adj BW) NUTRITION DIAGNOSIS: 1.) Inadequate oral intake related to altered GI function as evidenced by NPO/Clear liquid diet status x 3 days. NUTRITION INTERVENTION: 1.) Continue to advance diet as able per surgery recommendations. 2.) Recommend adding impact advanced recovery once diet has been advance to at least full liquids. MONITOR / EVAL: Diet advancement / tolerance, po intake, labs, nutritional status. Follow per high nutritional risk guidelines.
--- NOTE | 2016-11-19 15:58 | PROG NOTE ---
[address] [address] PROGRESS NOTE PATIENT: CARISA BROWN : 1970 MR#: [id number] ADMIT: 11/16/2016 JOB ID: [id number] DATE: 11/19/2016 EPIDURAL DAILY PROGRESS NOTE: SUBJECTIVE: The patient is feeling much better today. She states that her pain at rest is about 2/10 with exacerbation up to only 6/10. Pain is mostly down in the lower right abdomen. She is taking clear liquid without vomiting with some heartburn and some feelings of bloating. She has not passed flatus or a bowel movement. She is still receiving supplemental IV acetaminophen and hydromorphone for pain control in addition to her epidural. She has ambulated a few steps with physical therapy. OBJECTIVE: Vital signs and labs are reviewed without any notable abnormalities. The epidural insertion site has a transparent dressing intact. There is some amount of dried blood around the catheter. There is no erythema or tenderness at the insertion site. The epidural catheter is approximately 16-17 cm at the skin. Using ice, the patient has a sensory deficit from dermatomes approximate T6-T12 bilateral. There is no noticeable muscle weakness of the legs. ASSESSMENT AND PLAN: Postop day three status post incarcerated ventral hernia repair. The patient is not yet tolerating oral medications, we will leave the epidural going as is. We will continue to follow.
[2016-11-19] MEDS: Acetaminophen IV 1,000 MG in IV Premix 1 EACH IV PRN ×3 (16:40→23:24)
--- NOTE | 2016-11-19 19:30 | NUR ---
Pain/dressing change/Freed Pt pain well controlled with Epidural and IV Dilaudid and IV Tylenol. Dressing change done this am, Abdiaziz removed at 1500, has no voided yet tried twice wants to try again in a little bit, report given to evening shift RN, will monitor closely Addendum: 11/19/16 at 1932 by ALEJANDRINA LOPEZ RN Pt stood and took a couple steps 4 times this shift.
[2016-11-20] VITALS (9 sets, daily range): BP systolic 114–135; BP diastolic 67–88; PULSE 82–101; RESP 16–22; O2SAT 91–98
[2016-11-20] MEDS: Sodium Chloride LOK Flush 10 mL Syringe IVFLUSH SCH ×5 (00:30→16:30)
[2016-11-20] MEDS: Heparin 5,000 Unit/mL Inj SUBQ SCH ×3 (00:44→17:32)
[2016-11-20] MEDS: HYDROmorphone 0.5 mg/0.5 mL iSecure Syringe IVPUSH PRN ×8 (00:45→22:18)
--- NOTE | 2016-11-20 02:21 | NUR ---
Pain/Itching/Elevation of temp On initial assessment, patient stated pain 4/10 on pain scale. Patient stated that she is not pushing epidural as to reduce hesitancy with urination. Patient using bsc often to urinate. Dilaudid 0.5mg administered. Patient used a hydrocortisone liquid from home on scalp. Advised patient not to use medication as it was not approved by the pharmacy. Patient itching increased. Shower cap given to patient. After use, scalp itching subsided. Patients temp elevated to 37.1 but returned to normal post acetaminophen IV administration. Patient belching but not passing flatus. VSS. Call light within reach. Care continues.
[2016-11-20] MEDS: D5 0.45% NaCl + KCl 20 mEq/L 1,000 ML IV SCH ×3 (03:48→19:31)
[2016-11-20] MEDS: Pantoprazole 4 mg/mL 10 mL Inj IVPUSH SCH ×2 (08:26→19:36)
[2016-11-20 08:55] LABS: BASOPHILS % (AUTO) 0.2 % (0-3); EOSINOPHILS % (AUTO) 2.7 % (0-5); MONOCYTES % (AUTO) 9.7 % (4-12); Mean Corpuscular Hemoglobin 27.5 pg (27.0-35.0); Mean Corpuscular Volume 87.9 fL (81-100); NEUTROPHILS % (AUTO) 73.3 % (40-74); Platelet Count 405 bil/L (150-400)
--- NOTE | 2016-11-20 10:08 | PCM.PNSURG ---
Subjective Date of Service: Nov 20, 2016 Date of Service: Nov 20, 2016 Visit Information: Reason for Visit Incarcerated Ventral Hernia, Sbo Surgery/Surgery Date Post-Op Day # 4 s/p Open repair of incarcerated incisional hernia with mesh Date of Admission: Nov 16, 2016 at 05:57 Hospital Day # Subjective: Patient notes improved condition today. Able [place] [facility] [place]. Tolerating small amounts of clears with n/v. Denies f/c. Pain control effective as long as doses are not missed. No flatus or BM noted. Postop General: No Shortness of Breath, No Chest Pain Gastrointestinal: Tolerating Oral Feedings (clears only), No N/V Pain Management: Epidural, IV Push (dilaudid) Neurological: Weakness Postop Activity: Ambulate with Assist Objective Vital Sign- Last 8 Hours Date Time Temp Pulse Resp B/P Pulse Ox O2 Delivery O2 Flow Rate FiO2 11/20/16 08:42 36.7 82 20 114/76 95 Room Air 11/20/16 07:44 20 97 11/20/16 04:25 36.7 95 17 127/72 95 Room Air Intake and Output- Last 8 Hour 11/20/16 Cumulative From/Thru 07:00 11/16/16 01:55 - 11/20/16 06:42 Intake Total 2075 ml 73015 ml Output Total 565 ml 5960 ml Balance 1510 ml 9963 ml Intake Oral 750 ml 2190 ml IV Total 1325 ml 74871 ml Output Urine Total 500 ml 4945 ml Drainage Total 65 ml 990 ml Estimated Blood Loss 25 ml # Bowel Movements 0 0 General: Alert, Oriented X3, Cooperative, No Acute Distress Lungs: Clear to Auscultation Heart: Exam Unremarkable Abdomen: Firm, Appropriately tender, Other (hypoactive bowel sounds) SURGICAL WOUND : Wound General Appearence: [place], Intact, Well Approximated, Incision Healing, No Erythema, Wound under dressing Dressing & Drainage Status: Intact, No Purulent Drainage, No Odor Wound Drainage Type: NATALYA Drain #1 (serosanguinous 85mL), NATALYA Drain #2 ( serosanguinous 55mL) Result Diagram: 11/20/1681311/20/16813 Assessment & Plan Impression slow postoperative course s/p open repair of incarcerated incisional hernia with mesh. No bm or flatus yet, suspect prolonged postoperative ileus vs sbo as not vomiting, tolerating small amounts of clears and overall seems improved. Will get a KUB to reevaluate. - continue epidural until better PO intake - am labs - KUB - continue PT, ambulate - will consider TPN if intake does not improve Problems: VTE Prophylaxis: Sub-Q Heparin (Unfractionated) Resuscitation Status: CPR: Attempt Resuscitation Conrado Kevin PA-C Nov 20, 2016 10:08
--- NOTE | 2016-11-20 12:36 | DRSVH ---
PROCEDURE: X-RAY KUB ([id number]) INDICATIONS: evaluate for possible sbo vs ileus TECHNIQUE: One view of the abdomen acquired. COMPARISON: [facility], CR, XR KUB, 11/18/2016, 6:05. FINDINGS: Surgical changes and devices: A wire is seen overlying the midline anterior mediastinal region of the upper abdomen. Multiple surgical drains are seen within the pelvis. Skin yazmin are seen transver sely overlying the upper pelvis/lower abdomen. Bowel: Multiple prominently distended air-filled small bowel are seen within the upper abdomen and le ft abdomen measuring up to 5.7 cm in diameter. The degree of gaseous distention of these bowel loops is more prominent on the current examination compared to the exam dated 11/18/16. There is paucity o f rectal gas. However, air and stool are seen within the proximal colon. Soft tissues: No suspicious abdominal calcifications. Visualized solid organ contours appear normal in size. No unexpected radiopaque foreign bodies are evident. Bones: No suspicious bony lesions. IMPRESSION: 1. Interval increase in size of small bowel loops remain suspicious for bowel obstruction. Given pe rsistence and increase in size of the small bowel loops, postoperative ileus is felt to be less likel y, but cannot be excluded. The need for follow up CT may be determined clinically. Continued convent ional radiographic imaging followup is recommended. 2. Surgical drainage catheters are seen overlying the lower abdomen/pelvis. Dictated by: Jameson Tan M.D. on 11/20/2016 at 12:33 Approved by: Jameson Tan M.D. on 11/20/2016 at 12:35
[2016-11-20] MEDS: Acetaminophen IV 1,000 MG in IV Premix 1 EACH IV PRN (12:41)
[2016-11-20] MEDS: SODIUM CHLORIDE 0.9% EPIDURAL SCH (14:32)
[2016-11-20] MEDS: BUPIVACAINE MPF 0.5% EPIDURAL SCH (14:32)
--- NOTE | 2016-11-20 16:12 | NUR ---
Social Work- Continued D/C Planning Data: Pt is on day 4 of hospitalization POD 4 s/p open repair of incarcerated incisional hernia with mesh. Pt is not medically stable for discharge today. PT has seen pt, pt was able to ambulate 200 feet with fww. Pt anticipated to progress and discharge home with spouse and family to assist. SW will continue to follow and await additional discharge planning orders. Assessment: Pt who is independent at baseline. Plan: Pt able to ambulate 200 feet with PT with fww. Pt anticipated to progress and discharge home with spouse and family to assist. SW will continue to follow and await additional discharge planning orders. Vianey Xiong MSW
--- NOTE | 2016-11-20 16:52 | NUR ---
Epidural P: pt with urinary retention and adequate pain control with recent regimen. Discussion with anesthesiologist Dr. Adame, epidural stopped at 1200 with plan for follow up after his next case. Pain increased dramatically and spread to back and left side of abdomen where it had previously localized to her left side. I: Dr. Adame and YARIEL Patterson notified. Bolus of bupivicaine and lidocaine given through epidural by Dr. Adame and epidural restarted at continuous rate of 12mls/hr. E: BP cycled at 5 minute interval throughout bolus and stable. Pain dropped to 0/10. Pt has been able to get up OOB with minimal pain and reports being much more comfortable. This has been her longest interval without Dilaudid since her surgery.
--- NOTE | 2016-11-20 18:26 | PROG NOTE ---
[address] [address] PROGRESS NOTE PATIENT: CARISA BROWN : 1970 MR#: [id number] ADMIT: 11/16/2016 JOB ID: [id number] DATE: 11/20/2016 EPIDURAL POSTOPERATIVE PAIN NOTE: The patient is postop day number four from an incisional ventral hernia repair with mesh. The epidural was placed on 11/16/2016. Overnight the patient was complaining of inability to void, so the epidural infusion yesterday was changed from the standard epidural infusion to an epidural infusion without narcotics. The patient relates that pain control through the evening with the addition of IV Dilaudid for breakthrough pain was satisfactory. Throughout the morning today the patient was also complaining of one-sided greater coverage than the other, and based on this I temporarily held the epidural with plain bupivacaine; it was running a 12 cc an hour. During the 2 hours that the epidural was held, the patient's pain significantly increased bilaterally to a pain number of 7/10, although the patient was able to void. With discussion of the surgical team and with the patient, I decided to reinstitute the epidural infusion at 12 cc an hour with local anesthesia only and I bolused the epidural with 10 cc of 1% lidocaine. The patient's pain went from 7/10 to 0/10. She was hemodynamically stable and was happy with the pain relief related to the current epidural. PHYSICAL EXAMINATION: Today the temperature max was 37.1, blood pressure 135/88, heart rate of 82, respirations of 22, and saturations of 98%. The epidural site is clean dry and intact. It does not appear that the epidural has moved. There is zero erythema around the epidural site and the dressings are in place. ASSESSMENT: We will continue to keep the epidural infusion with plain bupivacaine running at 12 cc an hour with a 5 cc bolus every 15 minutes PCEA as patient was happy with the pain control with breakthrough pain with IV Dilaudid through the night. The patient is continuing to advance diet and, as soon as the patient is able to eat food and transitions over to p.o. narcotics, we will consider removing the epidural. If the pain coverage is inadequate overnight, the plan would be to go back onto the standard epidural infusion with bupivacaine and fentanyl at a standard rate.
--- NOTE | 2016-11-20 22:05 | NUR ---
epidural / pain control P: increased pain, rates pain "7" without effective relief. I: called dr Magdaleno anesthesia, explained above. Dr Magdaleno requested I ask the patient if she prefers the epidural to have fentanyl in it again. the patient affirmed that she wants the fentanyl in the epidural again. explained possible side effect of urinary retention. patient again affirmed above. Dr Magdaleno ordered standard solution bupivicaine 0.125% with fentanyl 2mcg (solution number 1) with rate of 15ml and hour and bolus as previously set with the bupivicaine epidural. loading dose as ordered. E: orders received. notified patient. plan to implement. and evaluate pain control Addendum: 11/21/16 at 0036 by JUAN DANIEL SIERRA RN epidural set up as above with fentanyl and bupivicaine unable to give loading dose as ordered because hermann fagan and myself could not set the pump to do this. Dr magdaleno affirmed on the phone that it could be 'difficult' to figure out the loading dose option and it was 'okay' if it was not given. cont pulse ox in place. epidural site without change. oxymask at 3liters when patient asleep. patient understands bolus button. given heating pad for back. care ongoing. Addendum: 11/21/16 at 0056 by JUAN DANIEL SIERRA RN epidural set up with jose j fagan for the double check of the medication and rate.
[2016-11-20] MEDS ORDERED: Atropine 1 mg/10 mL (Code) Syringe IVPUSH ONE (22:45)
[2016-11-20] MEDS ORDERED: EPHEDrine Sulfate 50 mg/mL Inj IVPUSH PRN (22:45)
[2016-11-20] MEDS ORDERED: Ondansetron 2 mg/mL 2 mL Inj IVPUSH PRN (22:45)
[2016-11-20] MEDS: fentaNYL 2 mCg/mL-Bupiv 0.125% 100 ML in IV Premix 1 EACH EPIDURAL SCH (23:37)
[2016-11-21] VITALS (9 sets, daily range): BP systolic 114–151; BP diastolic 75–93; PULSE 75–94; RESP 17–20; O2SAT 94–98
[2016-11-21] MEDS: Heparin 5,000 Unit/mL Inj SUBQ SCH ×3 (00:18→17:12)
[2016-11-21] MEDS: HYDROmorphone 0.5 mg/0.5 mL iSecure Syringe IVPUSH PRN ×3 (00:18→23:52)
[2016-11-21] MEDS: Sodium Chloride LOK Flush 10 mL Syringe IVFLUSH SCH ×6 (00:30→17:09)
--- NOTE | 2016-11-21 00:37 | NUR ---
menses patient is on her menses. this explains her blood tinged urine. given tampons. care ongoing
[2016-11-21] MEDS: fentaNYL 2 mCg/mL-Bupiv 0.125% 100 ML in IV Premix 1 EACH EPIDURAL SCH ×3 (04:47→20:54)
[2016-11-21] MEDS: D5 0.45% NaCl + KCl 20 mEq/L 1,000 ML IV SCH (05:16)
[2016-11-21 06:14] LABS: BASOPHILS % (AUTO) 0.3 % (0-3); EOSINOPHILS % (AUTO) 3.3 % (0-5); MONOCYTES % (AUTO) 8.9 % (4-12); Mean Corpuscular Hemoglobin 27.6 pg (27.0-35.0); NEUTROPHILS % (AUTO) 71.8 % (40-74); Platelet Count 429 bil/L (150-400)
--- NOTE | 2016-11-21 06:45 | NUR ---
pain control patient with signifigantly improved pain control with bupiviaine and fentanyl in the epidural. rate is 15ml an hour. with bolus of 5mg every 15 min bedside pulse oximetry. break through pain medication given as documented. patient arsouses to voice easily
[2016-11-21] MEDS: Pantoprazole 4 mg/mL 10 mL Inj IVPUSH SCH ×2 (08:02→20:54)
--- NOTE | 2016-11-21 08:59 | PCM.PNSURG ---
Subjective Date of Service: Nov 21, 2016 Date of Service: Nov 21, 2016 Visit Information: Reason for Visit Incarcerated Ventral Hernia, Sbo Post-Op Day # 5 s/p Open repair of incarcerated incisional hernia with mesh Date of Admission: Nov 16, 2016 at 05:57 Hospital Day # 6 Subjective: Patient states she is feeling good and notes improvement in her condition today. She is able to ambulate to [facility] with assist. Tolerating small amounts of clears with no n/v. Denies f/c. Pain control effective. Epidural infusion stopped for part of the day yesterday with return of pain. She currently has an infusion of just bupivacaine and fentanyl which seems to be working well for her. She did have a time period of just bupivacaine in her epidural yesterday which allowed for her to feel more pain. No flatus or BM noted. She does feel like things are starting to move and reiterates her history before coming in that she had been vomiting and having diarrhea and hasn't been eating so she feels like she may not have anything to make a bowel movement. Postop General: No Shortness of Breath, No Chest Pain Gastrointestinal: Tolerating Oral Feedings, No N/V Pain Management: Epidural, IV Push Postop Activity: Ambulate without Assist Objective Vital Sign- Last 8 Hours Date Time Temp Pulse Resp B/P Pulse Ox O2 Delivery O2 Flow Rate FiO2 11/21/16 05:10 36.6 94 17 130/76 94 Room Air Intake and Output- Last 8 Hour 11/21/16 Cumulative From/Thru 07:00 11/16/16 01:55 - 11/21/16 05:43 Intake Total 1872 ml 31195 ml Output Total 2035 ml 9485 ml Balance -163 ml 9829 ml Intake Oral 1000 ml 3775 ml IV Total 872 ml 44102 ml Output Urine Total 1950 ml 8355 ml Drainage Total 85 ml 1105 ml Estimated Blood Loss 25 ml # Bowel Movements 0 0 General: Alert, Oriented X3, Cooperative, No Acute Distress Neck: Supple, Full Range of Motion Lungs: Clear to Auscultation, Normal Air Movement Heart: Regular Rate/Rhythm Abdomen: Firm, Appropriately tender, Normoactive bowel tones SURGICAL WOUND : Wound General Appearence: [place], Intact, Well Approximated, Incision Healing, No Discharge, Wound under dressing Dressing & Drainage Status: Changed, Dressing Removed, No Purulent Drainage , No Odor Wound Drainage Type: NATALYA Drain #1 (30mL serosanguenous drained this morning) , NATALYA Drain #2 (55mL serosanguenous drained this morning) Extremities: Distal Pulses Palpable, Warm, Thigh&Calf Soft/Nontender Neuro: Grossly Neurologically Intact Catheters: None Result Diagram: 11/21/16 0530 11/21/16 0530 Lab & Micro Results: WBC stable at 11.7 this is a slight increase from 10.0 yesterday H&H slightly decreased but stable at 10.6/33.4 Urine culture shows mixed urogenital carlos manuel. Diagnostics: X-RAY KUB FINDINGS: Surgical changes and devices: A wire is seen overlying the midline anterior mediastinal region of the upper abdomen. Multiple surgical drains are seen within the pelvis. Skin yazmin are seen transversely overlying the upper pelvis/lower abdomen. Bowel: Multiple prominently distended air-filled small bowel are seen within the upper abdomen and left abdomen measuring up to 5.7 cm in diameter. The degree of gaseous distention of these bowel loops is more prominent on the current examination compared to the exam dated 11/18/16. There is paucity of rectal gas. However, air and stool are seen within the proximal colon. Soft tissues: No suspicious abdominal calcifications. Visualized solid organ contours appear normal in size. No unexpected radiopaque foreign bodies are evident. Bones: No suspicious bony lesions. IMPRESSION: 1. Interval increase in size of small bowel loops remain suspicious for bowel obstruction. Given persistence and increase in size of the small bowel loops, postoperative ileus is felt to be less likely, but cannot be excluded. The need for follow up CT may be determined clinically. Continued conventional radiographic imaging followup is recommended. 2. Surgical drainage catheters are seen overlying the lower abdomen/pelvis. Dictated by: Jameson Tan M.D. on 11/20/2016 at 12:33 Assessment & Plan Impression 46yo female with a slow post operative course s/p open repair of incarcerated incisional hernia with mesh. She does not seem to be passing flatus and has not had a bowel movement. KUB X-ray showed increase in dilation of bowel loops making post operative ileus less likely than obstruction. Continues to feel subjectively improved and wanting to try increasing her nutritional intake. She will benefit from some TPN until she is able to have adequate oral intake which will take some time. Problems: Plan 1. continue epidural until better PO intake 2. CBC and CMP in AM 3. Continue PT, ambulate 4. Will add swimming pool plasterer helper recommended impact advanced recovery which will be added on today. 5. PICC line and TPN ordered to start when nutrition feels it is appropriate to start as patient is malnourished with an albumin of 3.1 and in need of optimal recovery conditions. Pain Management: Fentanyl and Bupivacaine PCEA PO ibuprofen, tylenol, and oxycodone IV Dilaudid VTE Prophylaxis: Sub-Q Heparin (Unfractionated) Resuscitation Status: CPR: Attempt Resuscitation Attending Statement: I agree with Dr. Arroyo's assessment and plan. copies to: Pio Mccormick MD; Sim Guo MD, Erika R DO Nov 21, 2016 08:59 Sim Guo MD Nov 24, 2016 20:45
[2016-11-21] MEDS ORDERED: Sodium Chloride LOK Flush 10 mL Syringe IVFLUSH PRN ×2 (11:00)
--- NOTE | 2016-11-21 11:00 | NUR ---
dizziness pt c/o feeling dizzy and whoozy, like she was going to faint, even while sitting. VSS, BP 114/78, BS 117, Epidural had been increases to 15cc/hr with solution Fentanyl 2mcg/Bupiv 0.125%, so stopped Epidural pump and notified Dr Montoya(Anesthesia). He gave order to drecrease rate to 5cc/hr, same solution
--- NOTE | 2016-11-21 11:31 | NUR ---
NUTRITION FOLLOW UP: ASSESS: 46 YO female admitted for incarcerated ventral hernia, , POD #5. Pt is not passing flatus and no BM, suspicious for post-op bowel obstruction per surgeon notes, pt may need CT. Diet advanced today to Full Liquid per resident/dietitian as pt feeling that her Bowels are moving and that lack of BM likely r/t little nutrition prior to admit/currently. TPN ordered/on hold until tomorrow/day if po intake does not improve and pt w/o bowel obstruction. Discussed with pharmacy/resident Estephania Arroyo. PMHx: HTN, R colectomy for colon cancer with subsequent reexploration for intestinal perforation on POD #2, s/p chemo. LABS: Reviewed. Alb 3.1, Glu 130, Na 135 MEDS: Reviewed. GI: No BM reported. CURRENT WT: 130.2 kg. Adj BW: 83.2 kg. DIET:Full Liquids; prev. Clear Liquids. 25-50% x 5days EST. NEEDS: 6513-7774 kcals (25-30 kcals/kg Adj BW), 100-125 g protein (1.2-1.5 g/kg Adj BW) NUTRITION DIAGNOSIS: 1.) Inadequate oral intake related to altered GI function as evidenced by NPO/Clear liquid diet status x 5 days--MILDLY IMPROVING. Diet advanced to full liquid today. PO 25-50% on clear liquids. NUTRITION INTERVENTION: 1.) Continue to advance diet as able, Impact advanced recovery added to trays. 2.) If pt indeed has SBO/po intake poor on full liquids (<50%), TPN recommendations as follows: 100g Dextrose, 50g AA, 25g lipids providing 790kcal, 0.5g/kg/min dextrose, 25% protein,32% fat, 43% CHO meeting 37% kcal, 50% pro needs. Continue to advance TPN to fully meet pt needs with TPN + diet. MONITOR / EVAL: Diet advancement / tolerance, po intake, GI status, potential for TPN,labs. Follow per high nutritional risk guidelines.
--- NOTE | 2016-11-21 11:33 | NUR ---
Social Work- Continued D/C Planning Data: EMR reviewed. 46 YO female admitted for incarcerated ventral hernia, small bowel obstruction, POD #3. Pt is not passing flatus and abd. distention remains about the same as yesterday per notes. Pt has been NPO/CL x 3 days. Surgery advanced diet to clear liquids again, which pt is tolerating. Pt may require TPN to maintain adequate nutrition. Pt continues to have an epidural. SW met with at bedside regarding discharge plan. Pt resides in a single story home and is confident that she will have enough family assistance and will progress to ambulation without a fww prior to discharge. Pt states she may even have a walker at home but that it would be difficult to use at home. Pt reports her pain is more controlled and she is ambulating more in her room. PT has seen pt and she was able to ambulate 200 feet with fww. PT is recommending HHPT, but SW does not believe that pt will need this if she continues to progress. SW will continue to follow and await any HH orders from the medical team. Pt to discharge home with family to transport via POV, no anticipated discharge needs identified. SW will continue to follow. Assessment: Pt who is independent at baseline, and will return with family assistance at discharge Plan: Pt continues to progress. SW will continue to follow and await any HH orders from the medical team. Pt to discharge home with family to transport via POV, no anticipated discharge needs identified. SW will continue to follow. Vianey Xiong MSW
--- NOTE | 2016-11-21 15:00 | NUR ---
PICC line placed/flatus pt passed flatus, denies nausea, has had no nausea all shift, tried some pudding and tolerated, pain is now controlled with epidural but she no longer feels dizzy
--- NOTE | 2016-11-21 17:02 | DRSVH ---
PROCEDURE: X-RAY PICC LINE PLACEMENT BY NURSE ([id number]) INDICATIONS: PICC placement for TPN COMPARISON: [facility], , PICC LINE PLACE BY NURSE (OLLIE), 06/04/2011, 20:20. FINDINGS: PICC was placed by the intravenous therapy team from the right side. Fluoroscopic spot fi lm demonstrates tip projected over the lower SVC. IMPRESSION: Tip of PICC projected over the lower SVC . Dictated by: Mack DORADO Interpreted: Gaby Blackburn MD on 11/21/2016 at 15:36 Approved by: Gaby Blackburn M.D. on 11/21/2016 at 17:00
--- NOTE | 2016-11-21 20:39 | PROG NOTE ---
[address] [address] PROGRESS NOTE PATIENT: CARISA BROWN : 1970 MR#: [id number] ADMIT: 11/16/2016 JOB ID: [id number] DATE: 11/21/2016 SUBJECTIVE: The patient is postoperative day four from her incisional ventral hernia repair with mesh performed on November 16, 2016. Earlier today, the patient was on 12 cc/hour of plain bupivacaine epidurally and was feeling flushed, and the decision was made to temporarily stop the infusion. Fortunately, I was called early within 10 minutes after this and reinstituted the infusion at 5 mL per hour of 0.125% bupivacaine and epidural fentanyl. The patient has remained comfortable during the day and is very happy with her current pain relief. She denies any significant itching, motor weakness, or other symptoms and generally feels pretty good. PHYSICAL EXAM: Vital signs are all stable. An examination of the epidural site shows it to be clean, dry and intact without evidence of redness, tenderness, swelling, leakage or infection. ASSESSMENT: Continued excellent epidural analgesia with 5 mL an hour of the epidural bupivacaine/fentanyl infusion with breakthrough pain managed by IV Dilaudid. The patient says she is starting to pass gas, and I told her we would keep it going over night and reassess for discontinuation tomorrow.
[2016-11-22] MEDS: Sodium Chloride LOK Flush 10 mL Syringe IVFLUSH SCH ×6 (00:30→17:03)
[2016-11-22] MEDS: Heparin 5,000 Unit/mL Inj SUBQ SCH ×3 (02:22→17:03)
--- NOTE | 2016-11-22 02:48 | NUR ---
Pain/ stool Patient passed stool x2, able to ambulate to bathroom with minimal assistance. Pain managed with continuos epidural, however breakthrough pain had occurred. Given PRN pain med, now comfortable and able to rest.
[2016-11-22] MEDS: D5 0.45% NaCl + KCl 20 mEq/L 1,000 ML IV SCH (03:17)
[2016-11-22] MEDS: HYDROmorphone 0.5 mg/0.5 mL iSecure Syringe IVPUSH PRN ×5 (03:19→17:54)
[2016-11-22 03:50] LABS: BASOPHILS % (AUTO) 0.3 % (0-3); EOSINOPHILS % (AUTO) 3.1 % (0-5); MONOCYTES % (AUTO) 8.8 % (4-12); Mean Corpuscular Hemoglobin 27.4 pg (27.0-35.0); Mean Corpuscular Volume 86.7 fL (81-100); NEUTROPHILS % (AUTO) 66.3 % (40-74); Platelet Count 396 bil/L (150-400)
[2016-11-22] MEDS: fentaNYL 2 mCg/mL-Bupiv 0.125% 100 ML in IV Premix 1 EACH EPIDURAL SCH (04:19)
[2016-11-22 05:22] VITALS: BP 147/88; PULSE 91; RESP 18; O2SAT 92
[2016-11-22 08:00] VITALS: RESP 16; O2SAT 98
[2016-11-22] MEDS ORDERED: TPN Per Pharmacist XX SCH (08:30)
[2016-11-22] MEDS: Pantoprazole 4 mg/mL 10 mL Inj IVPUSH SCH ×2 (08:49→21:12)
--- NOTE | 2016-11-22 09:13 | PROG NOTE ---
[address] [address] PROGRESS NOTE PATIENT: CARISA BROWN : 1970 MR#: [id number] ADMIT: 11/16/2016 JOB ID: [id number] DATE: 11/22/2016 CHIEF COMPLAINT: The patient is a 45-year-old female, postop day six from incisional ventral hernia repair with mesh who had a thoracic epidural in place. Overnight she had some pain that was treated with IV Dilaudid. She says her pain control is the same today as it was yesterday. She is currently eating. She is ambulating. She denies any fevers, chills, pain in the area of the epidural, leg weakness, itching, nausea. She is having bowel movements and tolerating orals quite well. I discussed the case with Jhonatan Cervantes, surgical PA, who agrees that it would be appropriate to remove the epidural today. This was discussed with the patient who agreed with the plan. This was also discussed with nurse who understands the plan. ASSESSMENT AND PLAN: The patient is a 45-year-old female who is postop day six from incisional ventral hernia repair with mesh who has a thoracic epidural in place. Pain is adequately controlled. PLAN: Will be to remove epidural today by the nurse. We will sign off.
--- NOTE | 2016-11-22 11:17 | PCM.PNSURG ---
Subjective Date of Service: Nov 22, 2016 Date of Service: Nov 22, 2016 Visit Information: Reason for Visit Incarcerated Ventral Hernia, Sbo Surgery/Surgery Date Post-Op Day # 6 s/p Open repair of incarcerated incisional hernia with mesh Date of Admission: Nov 16, 2016 at 05:57 Hospital Day # Subjective: Seen today at bedside. Patient reports improved pain control. Patient reports BM and flatus. Denies nausea and vomiting. Tolerating oral feedings. Abdominal pain continues but is being managed with current PRN pain regimen. Patient menstruating with some associated discomfort. Denies f/c. Postop General: No Shortness of Breath, No Chest Pain Gastrointestinal: Tolerating Oral Feedings, No N/V, Passing Flatus, Passing Stool Pain Management: Epidural (dc'd today), Good Pain Control Objective Vital Sign- Last 8 Hours Date Time Temp Pulse Resp B/P Pulse Ox O2 Delivery O2 Flow Rate FiO2 11/22/16 05:22 36.8 91 18 147/88 92 Room Air Intake and Output- Last 8 Hour 11/22/16 Cumulative From/Thru 07:00 11/16/16 01:55 - 11/22/16 05:22 Intake Total 1429 ml 23595 ml Output Total 1760 ml 93644 ml Balance -331 ml 9588 ml Intake Oral 520 ml 5375 ml IV Total 909 ml 86500 ml Output Urine Total 1750 ml 54064 ml Drainage Total 10 ml 1155 ml Estimated Blood Loss 25 ml # Bowel Movements 0 0 General: Alert, Cooperative, No Acute Distress Lungs: Clear to Auscultation Heart: Regular Rate/Rhythm Abdomen: Soft, Appropriately tender, Non-distended, Protuberant, Normoactive bowel tones SURGICAL WOUND : Wound Location/Description transverse abdominal incision Wound General Appearence: Yazmin (erythema jus right of midline along yazmin), Intact, Well Approximated, Incision Healing, No Discharge, Erythema ( along yazmin just right of midline) Dressing & Drainage Status: Intact, Dressing Removed, No Purulent Drainage, No Odor Wound Drainage Type: NATALYA Drain #1 (minimal output serosanguinous), NATALYA Drain # 2 (minimal serousanguinous) Result Diagram: 11/22/16 0335 11/22/16334 Assessment & Plan Impression slow postoperative course s/p incarcerated ventral hernia repair with mesh Problems: Plan - d/c tpn - advance diet-->soft - agree with dc epidural - cap iv - watch wound for expanding erythema; likely inflammation only -NATALYA 2 dc'd VTE Prophylaxis: Sub-Q Heparin (Unfractionated) Resuscitation Status: CPR: Attempt Resuscitation Conrado Kevin PA-C Nov 22, 2016 11:17
[2016-11-22 11:39] VITALS: BP 138/86; PULSE 77; RESP 18; O2SAT 96
--- NOTE | 2016-11-22 13:43 | NUR ---
NUTRITION FOLLOW UP: ASSESS: 46 YO female admitted for incarcerated ventral hernia, , POD #6, post-op suspicious for SBO, TPN was considered, however pt now with +BM x 2 today, tolerating diet with diet advancement per MD and discontinuation of TPN. PMHx: HTN, R colectomy for colon cancer with subsequent reexploration for intestinal perforation on POD #2, s/p chemo. LABS: Reviewed. Glu 122, Alb 3.0, PAB 13 MEDS: Reviewed. GI: BM x 2 11/22 CURRENT WT: 130.2 kg. Adj BW: 83.2 kg. DIET: Soft. PO 25-50%. Impact all trays EST. NEEDS: 4415-3346 kcals (25-30 kcals/kg Adj BW), 100-125 g protein (1.2-1.5 g/kg Adj BW) NUTRITION DIAGNOSIS: 1.) Inadequate oral intake related to altered GI function as evidenced by NPO/Clear liquid diet status x 5 days--IMPROVING. Diet now advanced to soft. NUTRITION INTERVENTION: 1.) Continue to include supplements on all meal trays. Will include variety of supplements to ensure adequate po intake. MONITOR / EVAL:Diet tolerance, GI status, labs. F/U per moderate risk.
[2016-11-22 16:46] VITALS: BP 148/86; PULSE 87; RESP 18; O2SAT 96
--- NOTE | 2016-11-22 18:26 | NUR ---
Pain management Pt. stated this morning that she didn't think the epidural was completely effective. Spoke with MD and anesthesiologist and pt. would like to have it taken out. Epidural discontinued at 1015 with tip intact. Started pain management regimen with IV dilaudid 0.5 mg Q2 hour, and PRN oxycodone Q4. PO motrin and tylenol administered twice this shift as well. Pts pain has consistently been between a 6 and 8, and we will try some IV fentanyl for breakthrough pain to see if that helps. Will continue to monitor. Pts. says ice and position changes also helps. Currently has an ice pack on her abdomen and is watching TV.
[2016-11-22] MEDS: fentaNYL-PF 50 mCg/mL 2 mL Inj IVPUSH PRN (19:06)
[2016-11-22 20:14] VITALS: BP 162/93; PULSE 82; RESP 17; O2SAT 97
[2016-11-23] MEDS: Sodium Chloride LOK Flush 10 mL Syringe IVFLUSH SCH ×6 (01:05→16:33)
[2016-11-23] MEDS: fentaNYL-PF 50 mCg/mL 2 mL Inj IVPUSH PRN (01:06)
[2016-11-23] MEDS: Heparin 5,000 Unit/mL Inj SUBQ SCH ×4 (01:06→23:39)
[2016-11-23 05:04] VITALS: BP 161/94; PULSE 79; RESP 17; O2SAT 96
--- NOTE | 2016-11-23 07:43 | NUR ---
Pain Pt c/o abd pain 6/10 and back pain /10. pt given Fentanyl 25mcg x2, Oxycodone 5mg x2, Motrin 200mg x1, APAP 650mg x1, ice packs for abd and heating pad for back pain. Pt stated relief from medication and would ask during administration of a pain med, "Do you know when I can get another pain medication?" Binder in place on abd and incision are GRETA. Pt independent in room with a steady gait. Care ongoing.
[2016-11-23] MEDS: Pantoprazole 4 mg/mL 10 mL Inj IVPUSH SCH ×2 (09:15→20:17)
[2016-11-23] MEDS ORDERED: Polyethylene Glycol (PEG) 17 Gm Powder PO PRN (09:30)
--- NOTE | 2016-11-23 09:34 | PCM.PNSURG ---
Subjective Visit Information: Reason for Visit Incarcerated Ventral Hernia, Sbo Surgery/Surgery Date Post-Op Day # Date of Admission: Nov 16, 2016 at 05:57 Hospital Day # Subjective: so far tolerating a soft diet, had started having BM and passed flatus 2 days ago, but overnight felt constipated, no n/v, using abd binder Objective Objective Awake in chair Able to move into bed Abd: obese, transverse incision with yazmin, no expanding erythema, NATALYA in place --> serosang Vital Sign- Last 8 Hours Date Time Temp Pulse Resp B/P Pulse Ox O2 Delivery O2 Flow Rate FiO2 11/23/16 05:04 36.4 79 17 161/94 96 Room Air Intake and Output- Last 8 Hour 11/23/16 Cumulative From/Thru 07:00 11/16/16 01:55 - 11/23/16 05:04 Intake Total 1674 ml 53977 ml Output Total 755 ml 84322 ml Balance 919 ml 86727 ml Intake Oral 1674 ml 8045 ml IV Total 00716 ml Output Urine Total 750 ml 57041 ml Drainage Total 5 ml 1180 ml Estimated Blood Loss 25 ml # Bowel Movements 0 Result Diagram: 11/22/16 0335 11/22/16 0335 Assessment & Plan Impression POD #7 s/p open ventral hernia repair with mesh Morbid obesity Problems: Plan Will order laxatives and stool softener Wear abd binder Ambulate Pain control via po meds Possible d/c drain tomorrow VTE Prophylaxis: Sub-Q Heparin (Unfractionated) Resuscitation Status: CPR: Attempt Resuscitation Sim Guo MD Nov 23, 2016 09:34
--- NOTE | 2016-11-23 11:55 | NUR ---
Patient has been discharged to [facility] for ambulation at this time.
--- NOTE | 2016-11-23 14:26 | NUR ---
Pain / Activity / GI Pt has not required and IV pain medication so far this shift. She reports her pain is usually 5/10, and is getting relief from 5 mg oxycodone and 200 mg Motrin. Encouraged pt to increase her mobility and ambulation today in order to relieve gas pains. Pt was up with physical therapy and also walked in the hallway with her spouse this a.m. Pt reported this helped her pass flatus. Pt also reported having two small, formed stools today. States she feels bloated and constipated. Requested stool softener and laxative from surgeon and administered these medications as ordered. Care continues.
[2016-11-23 15:20] VITALS: BP 151/89; PULSE 102; RESP 18; O2SAT 95
[2016-11-23 20:28] VITALS: BP 124/78; PULSE 94; RESP 18; O2SAT 95
[2016-11-24] MEDS: Sodium Chloride LOK Flush 10 mL Syringe IVFLUSH SCH ×4 (00:30→08:34)
[2016-11-24 05:49] VITALS: BP 143/89; PULSE 90; RESP 16; O2SAT 94
--- NOTE | 2016-11-24 06:38 | NUR ---
Gas Pains Pain managed with APAP or 5 my Oxy, and once ibuprofen 200 mg. Pain remains 4 or less. Patient ambulates in room with no diffuculty, remains at bedside this shift. No SOB, no chest pain, no new GI symptoms. Care continues
--- NOTE | 2016-11-24 08:20 | PCM.PNSURG ---
Subjective Visit Information: Reason for Visit Incarcerated Ventral Hernia, Sbo Surgery/Surgery Date Post-Op Day # Date of Admission: Nov 16, 2016 at 05:57 Hospital Day # Subjective: had several BM's yesterday with stool softener and miralax, no n/v, tolerating reg diet, pain control via po oxycodone and ibuprofen and tylenol Objective Objective Awake in room Able to move into bed Abd: obese, incision clean with yazmin, NATALYA --> small amount serosang output ( removed) Vital Sign- Last 8 Hours Date Time Temp Pulse Resp B/P Pulse Ox O2 Delivery O2 Flow Rate FiO2 11/24/16 05:49 36.7 90 16 143/89 94 Room Air Intake and Output- Last 8 Hour 11/24/16 Cumulative From/Thru 07:00 11/16/16 01:55 - 11/24/16 05:49 Intake Total 400 ml 29315 ml Output Total 10 ml 87707 ml Balance 390 ml 86998 ml Intake Oral 400 ml 9689 ml IV Total 45930 ml Output Urine Total 54331 ml Drainage Total 10 ml 1200 ml Estimated Blood Loss 25 ml # Voids 3 5 # Bowel Movements 2 5 Result Diagram: 11/22/16 0335 11/22/16 0335 Assessment & Plan Impression s/p open ventral hernia repair with mesh Problems: Plan Possible d/c home later today Rx: oxycodone Continue to wear abd binder OK to shower OK to take home meds VTE Prophylaxis: Sub-Q Heparin (Unfractionated) Resuscitation Status: CPR: Attempt Resuscitation Sim Guo MD Nov 24, 2016 08:20
[2016-11-24] MEDS: Pantoprazole 4 mg/mL 10 mL Inj IVPUSH SCH (08:32)
[2016-11-24] MEDS: Heparin 5,000 Unit/mL Inj SUBQ SCH (08:33)
--- NOTE | 2016-11-24 11:24 | PCM.DISURG ---
Surgical Discharge Instruction Date of Service Nov 24, 2016 Dates of Hospitalization Date of Hospital Admission Nov 16, 2016 at 05:57 Providers Admitting Physician: Pio Mccormick MD Primary Care Physician: Ronaldo Tamayo MD Attending Physician: Pio Mccormick MD Discharge Diagnosis Discharge Diagnosis Open ventral hernia repair with mesh Diet Discharge Diet: No restrictions Activity Discharge Activity-General: Balance rest and activity, Activity as pain allows , No lifting >15 pounds for 2 weeks, No driving while taking narcotic Dressing and Incisional Care Dressing Care: Keep dressing clean, dry & intact Hygiene: May shower Additional Instructions Discharge Instructions Rx: oxycodone (#20), colace F/U with Surgery PA in 1-2 weeks for staple removal and wound check Continue to wear abd binder OK to take home meds Follow Up Plan Follow-up Provider (F9): Evelyne Baeza PAC Follow-up appointment: Weeks (1-2) Call your provider for: Fever, Increasing abdominal pain, Vomiting, Increasing wound pain, Discharge @ incision, pus discharge Sim Guo MD Nov 24, 2016 11:24
--- NOTE | 2016-11-24 13:25 | NUR ---
Social Work: Discharge D: EMR reviewed. Pt is on day 8 of hospitalization. Per MD, HH is not medically necessary and pt is not homebound. Pt to discharge home with family to transport via POV, no anticipated discharge needs identified. SW will continue to follow. A: Pt who is independent at baseline, and will return with family assistance at discharge P: Pt to discharge home with family to transport via POV, no anticipated discharge needs identified. SW will continue to follow. NOEMI Abbasi
--- NOTE | 2016-11-24 14:32 | NUR ---
Discharge Pt discharged to home with spouse via private vehicle at 1350 hrs. PICC line was removed by IV therapy prior to discharge. VSS. Pain controlled by 5 mg PO oxycodone and Tylenol. All personal possessions sent with pt. Educated pt on use of new medications: oxycodone, Miralax and Colace. Stressed importance of avoiding constipation. Instructed pt on warning signs of infection (chills, fever, purulent discharge from wound) and to watch for increased pain. Gave follow up instructions to have yazmin removed; advised pt to call for an appointment for follow up in approximately 1 week. Pt expressed understanding.
--- NOTE | 2016-11-25 15:25 | PCM.DC.SUR ---
Discharge Summary Date of Service: Nov 25, 2016 Date of Hospital Admission: Nov 16, 2016 at 05:57 Date of Operation(s): Nov 16, 2016 Date of Discharge: Nov 24, 2016 Diagnosis at Time of Discharge Incarcerated incisional hernia. Problems: (1) Incarcerated ventral hernia Status: Acute ICD Code: K46.0 (2) Morbid obesity Status: Acute ICD Code: E66.01 Operation Open repair of incarcerated incisional hernia with mesh Brief History and Physical: The patient notes that she has had this incisional hernia for quite some time, feels that she is usually able to reduce it but that it is irreducible and that she has been vomiting with focal pain over the hernia since yesterday. She came into the emergency department in the middle of the night, received some intravenous ketamine with the attempt to reduce the hernia after a CT scan has demonstrated a hernia. The patient reportedly has had this hernia for quite some time, always has felt that she could reduce it by lying down on her back. The hernia has become more symptomatic with discomfort and she sought consultation with a general surgeon, Dr. Alvarenga who recommended that she lose weight prior to hernia repair. She has not been terribly successful at this but again, pain became worse than usual yesterday, had associated nausea and vomiting and tenderness over the right lower quadrant and she has presented to the emergency department. PHYSICAL EXAMINATION: In the emergency department, pulse was 99. Blood pressure was 184/111. Temperature was normal at 36.4. After further treatment, her blood pressure went down to 186/99, her pulse was 89. Her sclerae are clear. Neck is supple. Lungs are clear. Heart sounds are distant but regular. She has central obesity with a BMI of 43.6. She has a well-healed surgical incision consistent with a right transverse incision. She is mildly tender over the right lower quadrant in the area of incarcerated small intestine. Extremities are without edema. Neurologically, she is intact though she is still a bit loopy after the ketamine. LABORATORIES: Initial comprehensive metabolic panel is normal except for a glucose of 204 and repeat blood sugar is 167 with a pending hemoglobin A1c. Initial white count was 15, down to 14 with a repeat. Initial hematocrit is 44 but after 2 L of fluid it is down to 42. IMAGING: She had abdominal CT that I have reviewed, both the films and the report, as well as comparing the film to a CT scan from approximately two years ago. This demonstrates a very large parasagittal hernia containing mesenteric small bowel with some dilated loops of bowel and edema in the small bowel mesentery. The hernia is essentially unchanged except for the changes in the small bowel mesentery from several years ago. Consultants: Anesthesiology Hospital Course: After the patient was initially evaluated in the ED, the patient was then taken to the operating room for a incisional hernia repair with mesh. Please refer to the operative notes for details of the procedure. The patient tolerated the procedure well and was then transferred to her hospital room where she remained for the balance of her hospital stay. The postoperative phase of her hospital stay was taken up by a slow return of bowel function requiring a plan to start TPN and then cancelling it, serial KUB's to follow dilated loops of small bowels to rule out obstruction, (which never occured), management and eventual removal of 2 mariza garcia drains placed intraoperatively and then serially removed and adequate pain control requiring the combined use of an epidural, a OIL BURNER INSTALLER and an abdominal binder. The OIL BURNER INSTALLER and then the epidural were eventually discontinued once the patient had a bowel movement on postoperative day number 6. During her hospital stay, she continued with physical therapy, and her diet was slowly advanced. Both abdominal drains were serially removed. On postoperative day number 8 she was found to be tolerating oral pain medication, tolerating a diet and ambulating sufficiently per PT. She was then discharged to home in good condition. Pathology: None Disposition: Home in good condition Follow-up Plan: 1. Discharge Diet: No restrictions 2. Discharge Activity-General: Balance rest and activity, Activity as pain allows, No lifting >15 pounds for 2 weeks, No driving while taking narcotic 3. Dressing Care: Keep dressing clean, dry & intact 4. Hygiene: May shower 5. Discharge Instructions Rx: oxycodone (#20), colace F/U with Surgery PA in 1-2 weeks for staple removal and wound check Continue to wear abd binder OK to take home meds 6. Follow-up Provider: Evelyne Baeza 7. Follow-up appointment: Weeks (1-2) 8. Call your provider for: Fever, Increasing abdominal pain, Vomiting, Increasing wound pain, Discharge @ incision, pus discharge Ferrous Sulfate (Iron) 325 Mg Capsule.er 325 MG PO (Reported) Fluoxetine (Fluoxetine) 20 Mg Capsule 20 MG PO DAILY (Reported) Hydrochlorothiazide (Hydrochlorothiazide) 25 Mg Tablet 25 MG PO DAILY (Reported ) Lactobacillus Combination No.4 (Probiotic) 1 Each Capsule 1 EACH PO DAILY ( Reported) Lisinopril (Lisinopril) 5 Mg Tablet 10 MG PO DAILY (Reported) Mv,Ca,Min/Iron Fum/FA/Vit K (Multi For Her Tablet) 1 Each Tablet 1 EACH PO DAILY (Reported) Porcupine-3/Dha/Epa/Fish Oil (Fish Oil Porcupine-3 EC 1,200 mg) 360 Mg-1,200 Mg Capsule.dr 1 EACH PO (Reported) copies to: Ronaldo Tamayo MD, Samuel L PA-C Nov 25, 2016 15:25
== END 2016-11-24 13:49 | disposition home or self-care (01) | DRG 354 ==
LOC: SED 01:53 → OSC 05:57
PROVIDERS: ADMIT Surgery; ATTEND Surgery
PROC: 0WUF0JZ Supplement Abdominal Wall with Synthetic Substitute, Open Approach (ICD-10-PCS; principal; 2016-11-16 12:00)
DX: K43.6 Other and unspecified ventral hernia with obstruction, without gangrene (principal); Z68.41 Body mass index [BMI] 40.0-44.9, adult; I10 Essential (primary) hypertension; E66.01 Morbid (severe) obesity due to excess calories; Z85.038 Personal history of other malignant neoplasm of large intestine